=== PATIENT | female | born 1965 ===

== ENCOUNTER 2018-12-27 09:34 | Inpatient (IN) | payer OTHER ==
[2018-12-27] MEDS ORDERED: SODIUM CHLORIDE 1,000 ML IV STA ×2 (10:19→14:41)
[2018-12-27] MEDS ORDERED: ONDANSETRON 4 MG/2 ML VIAL IVPUSH ONE ×2 (10:19→14:41)
[2018-12-27] MEDS ORDERED: KETOROLAC TROMETHAMINE 30 MG/1 ML VIAL IVPUSH ONE (10:19)
--- NOTE | 2018-12-27 10:19 | PDOC ---
History of Present Illness - General History Source: Patient - History of Present Illness Timing/Duration: reports: getting worse Abdominal Pain Onset Location: reports: [facility] <Xuan Mustafa - Last Filed: 12/27/18 15:05> <Renetta Lemus - Last Filed: 12/27/18 22:45> - General Chief Complaint: Pain, Acute Stated Complaint: ABD.PAIN/VOMITING/DIZZY Time Seen by Provider: 12/27/18 09:51 Past History - Past Medical History COPD: No HTN: Yes - Immunization History Immunization Up to Date: No - Suicide/Smoking/Psychosocial Hx Smoking History: Never smoked Have you smoked in the past 12 months: No Information on smoking cessation initiated: No Hx Alcohol Use: No Drug/Substance Use Hx: No <Xuan Mustafa - Last Filed: 12/27/18 15:05> <Renetta Lemus - Last Filed: 12/27/18 22:45> - Past Medical History Allergies/Adverse Reactions: Allergies Allergy/AdvReac Type Severity Reaction Status Date / Time No Known Allergies Allergy Unverified 03/28/12 11:59 Home Medications: Ambulatory Orders Naproxen [Naprosyn -] 500 PO PRN 12/27/18 Review of Systems - Review of Systems Constitutional: No: Chills, Fever ABD/GI: Yes: Nausea, Vomiting, Abdominal cramping. No: Blood Streaked Bowels, Constipated, Diarrhea, Rectal Bleeding : Yes: Dysuria. No: Flank Pain, Hematuria <Xuan Mustafa - Last Filed: 12/27/18 15:05> *Physical Exam - Vital Signs Last Vital Signs Temp Pulse Resp BP Pulse Ox 98.4 F 81 16 148/91 100 12/27/18 09:45 12/27/18 09:45 12/27/18 09:45 12/27/18 09:45 12/27/18 09:45 - Physical Exam General Appearance: Yes: Mild Distress HEENT: positive: Normal Voice Neck: positive: Supple Respiratory/Chest: negative: Respiratory Distress Gastrointestinal/Abdominal: positive: Tender (diffuse ttp, most notably to mid and L lower abd) Musculoskeletal: negative: CVA Tenderness Integumentary: positive: Dry, Warm Neurologic: positive: Fully Oriented, Alert, Normal Mood/Affect <Xuan Mustafa - Last Filed: 12/27/18 15:05> - Vital Signs Last Vital Signs Temp Pulse Resp BP Pulse Ox 98.4 F 81 16 148/91 100 12/27/18 09:45 12/27/18 09:45 12/27/18 09:45 12/27/18 09:45 12/27/18 09:45 <Renetta Lemus Madihaellen - Last Filed: 12/27/18 22:45> ED Treatment Course - LABORATORY CBC & Chemistry Diagram: 12/27/18 10:39 12/27/18 10:39 <Xuan Mustafa - Last Filed: 12/27/18 15:05> - LABORATORY CBC & Chemistry Diagram: 12/27/18 10:39 12/27/18 10:39 <Renetta Lemus - Last Filed: 12/27/18 22:45> Medical Decision Making - Medical Decision Making 12/27/18 10:16 53 yo F, h/o remote csection/ovarian cyst removal and shameka, here with abdominal pain with nausea and vomiting. Patient states 2 weeks ago she developed intermittent LLQ pain and that last night started having repeated e/o n/v. Also reports some dysuria. No back pain, urinary frequency, hematuria, change in bowel movement or f/c. No h/o similar symptoms See exam R/o diverticulitis vs UTI/pyelo vs SBO -pain control -zofran -IVF -labs -CT 12/27/18 14:35 Distal SBO w/ transition point in L pelvis. Pt states pain and nausea has returned. Case d/w Dr Kelley of surgery, who recommends NG tube placement in ED. Will contact hospitalist to arrange admission at this time <Xuan Mustafa Last Filed: 12/27/18 15:05> - Medical Decision Making The patient was seen and evaluated in conjunction with midlevel provider under my direct supervision, ancillary studies were reviewed. I agree with the plan as outlined MONA Mustafa. HPI, workup/dispo as outlined. VS reviewed, wnl. labs and UA neg CT a/p concerning for SBO with dilated loops of SB >3cm on multiple views on my review pending official bedside educational sono with SBO and dilated loops of bowel, to and fro and lack of forward peristalsis surgery cs, Dr Kelley to see NGT NPO pain control admit 12/27/18 10:51 12/27/18 14:09 12/27/18 22:45 <Renetta Lemus - Last Filed: 12/27/18 22:45> *DC/Admit/Observation/Transfer - Discharge Dispostion Decision to Admit order: Yes <Xuan Mustafa - Last Filed: 12/27/18 15:05> <Renetta Lemus - Last Filed: 12/27/18 22:45> Diagnosis at time of Disposition: Small bowel obstruction - Discharge Dispostion Condition at time of disposition: Stable
[2018-12-27] MEDS ORDERED: KETOROLAC TROMETHAMINE 30 MG/1 ML VIAL ONE (10:28)
[2018-12-27] MEDS ORDERED: ONDANSETRON 4 MG/2 ML VIAL ONE ×2 (10:29→14:39)
[2018-12-27 10:56] LABS: BASO % 0.4 % (0-2.0); EOS % 0.2 % (0-4.5); HEMATOCRIT 42.4 % (32.4-45.2); HEMOGLOBIN 14.3 GM/dL (10.7-15.3); LYMPH % 9.3 % (8-40); MCH 28.9 pg (25.7-33.7); MCHC 33.8 g/dl (32.0-36.0); MEAN CELL VOLUME 85.6 fl (80-96); MEAN PLT VOLUME 8.5 fl (7.5-11.1); MONO % 3.1 % (3.8-10.2); PLATELET COUNT 351 K/MM3 (134-434); RBC 4.95 M/mm3 (3.60-5.2); RDW 14.8 % (11.6-15.6); WHITE BLOOD COUNT 9.6 K/mm3 (4.0-10.0)
[2018-12-27 10:58] LABS: EPI CELLS 8.4 /HPF (0-5/HPF); HYALINE CASTS 36 /lpf (0-8); URINE APPEARANCE CLEAR; URINE BILIRUBIN NEGATIVE (NEGATIVE); URINE COLOR YELLOW; URINE GLUCOSE (UA) NEGATIVE (NEGATIVE); URINE KETONE 2+ (NEGATIVE); URINE LEUK ESTERASE TRACE (NEGATIVE); URINE NITRITE NEGATIVE (NEGATIVE); URINE PROTEIN 2+ (NEGATIVE); URINE RBC 7 /hpf (0-4); URINE WBC 2 /hpf (0-5)
[2018-12-27 11:15] LABS: ALBUMIN 4.4 g/dl (3.4-5.0); BILIRUBIN,TOTAL 0.4 mg/dL (0.2-1); BLOOD UREA NITROGEN 19.1 mg/dL (7-18); CREATININE 0.7 mg/dL (0.55-1.3); POTASSIUM 3.7 mmol/L (3.5-5.1); TOT PROT 8.3 g/dl (6.4-8.2)
[2018-12-27] MEDS ORDERED: morphine CARPU-JECT 4 MG/1 ML DISP.SYRIN IVPUSH ONE ×2 (14:28→14:33)
[2018-12-27] MEDS ORDERED: morphine SULFATE 4 MG/ML VIAL ONE (14:33)
--- NOTE | 2018-12-27 15:17 | CONSULT ---
Consult Consult Specialty:: General Surgery Reason for Consultation:: SBO - History of Present Illness Chief Complaint: abdominal pain History of Present Illness: 53yo female PMH [place], s/p left ovarian cystectomy 1 week of worsening abdominal pain. Denies nausea and vomiting. No passage of flatus in 3 days. No BM in 2 days. She was not aware of cholecystetctomy although evidence on CT scan. We were called to assess. - History Source History Provided By: Patient, Medical Record Limitations to Obtaining History: No Limitations - Past Surgical History Past Surgical History: Yes: Cholecystectomy, Additional Surgical History: left ovarian cystectomy - Alcohol/Substance Use Hx Alcohol Use: No - Smoking History Smoking history: Never smoked Have you smoked in the past 12 months: No Home Medications - Allergies Allergies/Adverse Reactions: Allergies Allergy/AdvReac Type Severity Reaction Status Date / Time No Known Allergies Allergy Unverified 03/28/12 11:59 - Home Medications Home Medications: Ambulatory Orders Naproxen [Naprosyn -] 500 PO PRN 12/27/18 Review of Systems - Review of Systems Constitutional: denies: Chills, Fever Eyes: denies: Blind Spots, Recent Change in Vision HENT: denies: Difficult Swallowing, Throat Pain Neck: denies: Stiffness, Tenderness Cardiovascular: denies: Chest Pain, Palpitations Respiratory: denies: Cough, SOB Gastrointestinal: reports: Abdominal Pain, Bloating. denies: Constipation, Diarrhea Genitourinary: denies: Discharge, Dysuria Breasts: reports: No Symptoms Reported. denies: Pain, Skin Changes Musculoskeletal: denies: Muscle Pain, Muscle Weakness Integumentary: denies: Lesions, Rash Neurological: denies: Seizure, Syncope Endocrine: denies: Unexplained Weight Gain, Unexplained Weight Loss Hematology/Lymphatic: denies: Easily Bruised, Excessive Bleeding Psychiatric: denies: Anxiety, Depression Physical Exam Vital Signs: Vital Signs Temperature 98.4 F 12/27/18 09:45 Pulse Rate 81 12/27/18 09:45 Respiratory Rate 16 12/27/18 09:45 Blood Pressure 148/91 12/27/18 09:45 O2 Sat by Pulse Oximetry (%) 100 12/27/18 09:45 Constitutional: Yes: Well Nourished, No Distress, Calm Eyes: Yes: Conjunctiva Clear, EOM Intact HENT: Yes: Atraumatic, Normocephalic Neck: Yes: Supple, Trachea Midline Cardiovascular: Yes: Regular Rate and Rhythm, S1, S2 Respiratory: Yes: Regular, CTA Bilaterally Gastrointestinal: Yes: Normal Bowel Sounds, Soft, Abdomen, Obese, Tenderness ( diffuse discomfort). No: Tenderness, Epigastrium, Tenderness, Rebound ...Rectal Exam: Yes: Sphincter Tone Normal. No: Mass Renal/: No: CVA Tenderness - Left, CVA Tenderness - Right Breast(s): No: Right, Mass, Nipple Inversion, Skin Changes Musculoskeletal: No: Muscle Pain Extremities: No: Amputation, Cool, Cyanosis Edema: No Peripheral Pulses WNL: Yes Integumentary: No: Jaundice, Rash Neurological: Yes: Alert, Oriented Psychiatric: Yes: Alert, Oriented Labs: CBC, BMP 12/27/18 10:39 12/27/18 10:39 Imaging - Results Cat Scan: Report Reviewed, Image Reviewed (SBO possible closed loop) Problem List - Problems (1) Small bowel obstruction Assessment/Plan: 53yo female s/p Multiple abdominal surgeries with SBO with possible closed loop NPO and IVF hydration IV antibiotics Serial Exams F/u FUA xrays OR for Exp Laparotomy, ANDI, possible bowel ressection possible ostomy Discussed with patient risks, benefits and alternatives of laparoscopic possible open ectomy, including but not limited to bleeding, infection, injury to adjacent structures, leak or injury, intraabdominal abscess, incisional hernia, need for further procedures, ; alternatives include antibiotics, delayed or no surgery - risks of this include failure of nonoperative therapy, perforation, sepsis, recurrence, . Patient desires to proceed with operation - will take to OR for above. Informed consent signed for same. Thank you for the opportunity to participate in the care of this patient. Code(s): K56.609 - UNSP INTESTNL OBST, UNSP TO PARTIAL VERSUS COMPLETE OBST (2) History of abdominal surgery Code(s): Z98.890 - OTHER SPECIFIED POSTPROCEDURAL STATES (3) Abdominal pain in female patient Code(s): R10.9 - UNSPECIFIED ABDOMINAL PAIN
[2018-12-27] MEDS ORDERED: BENZOCAINE 20% 57 GM BOTTLE TP PRN (15:28)
[2018-12-27] MEDS ORDERED: LIDOCAINE HCL 2% JELLY (5 ML/TUBE) ONE (15:28)
[2018-12-27] MEDS ORDERED: LIDOCAINE VISCOUS 2% ORAL/TOP 20 ML UNIT-DOSE CUP MM ONE (15:29)
[2018-12-27] MEDS ORDERED: SODIUM CHLORIDE 1,000 ML IV SCH (16:15)
[2018-12-27] MEDS ORDERED: ONDANSETRON 4 MG/2 ML VIAL IVPB PRN (18:48)
[2018-12-27] MEDS: D5-1/2NS+20 MEQ KCL - 20 MEQ/1,000 ML INFUS.BAG IV SCH (19:07)
[2018-12-27 20:40] VITALS: BMI 25.2
[2018-12-27] MEDS: MORPHINE SULFATE 2 MG/ML VIAL IVPUSH PRN (21:18)
[2018-12-28] MEDS: D5-1/2NS+20 MEQ KCL - 20 MEQ/1,000 ML INFUS.BAG IV SCH ×3 (05:21→19:53)
[2018-12-28 07:34] LABS: BASO % 0.2 % (0-2.0); EOS % 0.1 % (0-4.5); HEMATOCRIT 40.5 % (32.4-45.2); HEMOGLOBIN 13.4 GM/dL (10.7-15.3); LYMPH % 13.1 % (8-40); MCH 28.8 pg (25.7-33.7); MCHC 33.2 g/dl (32.0-36.0); MEAN CELL VOLUME 86.9 fl (80-96); MEAN PLT VOLUME 8.6 fl (7.5-11.1); MONO % 9.8 % (3.8-10.2); NEUT % 76.8 % (42.8-82.8); PLATELET COUNT 313 K/MM3 (134-434); RBC 4.65 M/mm3 (3.60-5.2); RDW 14.9 % (11.6-15.6); WHITE BLOOD COUNT 7.1 K/mm3 (4.0-10.0)
[2018-12-28] MEDS: MORPHINE SULFATE 2 MG/ML VIAL IVPUSH PRN ×2 (07:52→20:22)
[2018-12-28 08:01] LABS: ALBUMIN 3.2 g/dl (3.4-5.0); BILIRUBIN,TOTAL 0.5 mg/dL (0.2-1); BLOOD UREA NITROGEN 13.6 mg/dL (7-18); CALCIUM 8.4 mg/dL (8.5-10.1); CREATININE 0.6 mg/dL (0.55-1.3); POTASSIUM 4.1 mmol/L (3.5-5.1); TOT PROT 6.5 g/dl (6.4-8.2)
--- NOTE | 2018-12-28 10:47 | HP ---
Admitting History and Physical - Primary Care Physician PCP: Kevan Nava - Admission Chief Complaint: SBO History of Present Illness: ER HISTORY-- Medical Decision Making - Medical Decision Making 12/27/18 10:16 53 yo F, h/o remote csection/ovarian cyst removal and shameka, here with abdominal pain with nausea and vomiting. Patient states 2 weeks ago she developed intermittent LLQ pain and that last night started having repeated e/o n/v. Also reports some dysuria. No back pain, urinary frequency, hematuria, change in bowel movement or f/c. No h/o similar symptoms See exam R/o diverticulitis vs UTI/pyelo vs SBO -pain control -zofran -IVF -labs -CT 12/27/18 14:35 Distal SBO w/ transition point in L pelvis. Pt states pain and nausea has returned. Case d/w Dr Kelley of surgery, who recommends NG tube placement in ED. Pt examined by me today spoke with surgeon- continue NG tube pt c/o pain and does not want NG tube placed no BM or flatus so far, feeling nauseous History Source: Patient Limitations to Obtaining History: No Limitations - Past Medical History ...: No - Smoking History Smoking history: Never smoked Have you smoked in the past 12 months: No - Alcohol/Substance Use Hx Alcohol Use: No Home Medications - Allergies Allergies/Adverse Reactions: Allergies Allergy/AdvReac Type Severity Reaction Status Date / Time No Known Allergies Allergy Unverified 03/28/12 11:59 - Home Medications Home Medications: Ambulatory Orders Naproxen [Naprosyn -] 500 PO PRN 12/27/18 Review of Systems - Review of Systems Constitutional: denies: Chills, Fever Gastrointestinal: reports: Abdominal Pain, Nausea. denies: Constipation, Diarrhea Physical Examination Vital Signs: Vital Signs Temperature 99.4 F 12/28/18 10:00 Pulse Rate 77 12/28/18 10:00 Respiratory Rate 18 12/28/18 10:00 Blood Pressure 132/87 12/28/18 10:00 O2 Sat by Pulse Oximetry (%) 95 12/27/18 21:00 Constitutional: Yes: Moderate Distress Cardiovascular: Yes: Regular Rate and Rhythm Respiratory: Yes: CTA Bilaterally Gastrointestinal: Yes: Soft, Distention, Hypoactive Bowel Sounds, Tenderness. No: Normal Bowel Sounds Edema: No Neurological: Yes: Alert, Oriented Labs: CBC, BMP 12/28/18 06:35 12/28/18 06:35 Imaging - Results Cat Scan: Report Reviewed Problem List - Problems (1) Abdominal pain in female patient Code(s): R10.9 - UNSPECIFIED ABDOMINAL PAIN (2) History of abdominal surgery Code(s): Z98.890 - OTHER SPECIFIED POSTPROCEDURAL STATES (3) Small bowel obstruction Code(s): K56.609 - UNSP INTESTNL OBST, UNSP TO PARTIAL VERSUS COMPLETE OBST Assessment/Plan PLAN NG tube on continuous low wall suction iv fluids NPO pain control Surgery eval noted Check FUA Zofran as needed DVT prophylaxis-- Lovenox sc
[2018-12-28] MEDS: ACETAMINOPHEN 1000 MG/100 ML VIAL (NON FORMULARY) IVPB PRN ×2 (12:34→23:07)
[2018-12-28] MEDS: PANTOPRAZOLE SODIUM 40 MG VIAL IVPUSH SCH (12:34)
[2018-12-29] MEDS: D5-1/2NS+20 MEQ KCL - 20 MEQ/1,000 ML INFUS.BAG IV SCH ×3 (02:00→19:00)
[2018-12-29] MEDS: ACETAMINOPHEN 1000 MG/100 ML VIAL (NON FORMULARY) IVPB PRN ×2 (04:55→13:12)
[2018-12-29] MEDS: MORPHINE SULFATE 2 MG/ML VIAL IVPUSH PRN (09:40)
--- NOTE | 2018-12-29 09:56 | PN ---
Progress Note (short form) - Note Progress Note: Wants to remove NG tube- has pain in throat c/o abd pain Nausea+ Vital Signs - 24 hr 12/28/18 12/28/18 12/28/18 10:00 14:00 18:16 Temperature 99.4 F 99.0 F 98.4 F Pulse Rate 77 81 77 Respiratory 18 18 18 Rate Blood Pressure 132/87 118/75 125/77 O2 Sat by Pulse Oximetry (%) 12/28/18 12/29/18 12/29/18 21:00 07:35 09:20 Temperature 99.2 F 98.2 F Pulse Rate 77 80 Respiratory 18 18 18 Rate Blood Pressure 142/85 136/87 O2 Sat by Pulse 95 Oximetry (%) Current Medications Generic Name Dose Route Start Last Admin Trade Name Freq PRN Reason Stop Dose Admin Acetaminophen 1,000 mg 12/27/18 18:47 12/29/18 04:55 Ofirmev Injection - IVPB 1,000 mg Q6H PRN Administration PAIN OR FEVER Benzocaine 1 spray 12/27/18 15:28 Americaine 20% [place] - TP PRN PRN NG tube placement Benzocaine/Menthol 1 each 12/28/18 10:47 Cepacol Lozenge - MM PRN PRN SORE THROAT Potassium Chloride/Dextrose/Sod Cl 20 meq in 1,000 mls @ 100 mls/hr 12/27/18 19:00 12/29/18 02:00 D5-1/2ns+20 Meq Kcl - IV 100 mls/hr ASDIR LEVI Administration Morphine Sulfate 2 mg 12/27/18 18:49 12/29/18 09:40 Morphine Sulfate IVPUSH 2 mg Q6H PRN Administration PAIN LEVEL 6-10 Ondansetron HCl 4 mg 12/27/18 18:48 Zofran Injection IVPB Q6H PRN NAUSEA Pantoprazole Sodium 40 mg 12/28/18 10:00 12/28/18 12:34 Protonix Iv IVPUSH 40 mg DAILY LEVI Administration Laboratory Results - last 24 hr 12/28/18 10:10 Lactic Acid 1.1 S1 S2 RRR Lungs decreased Increased NH drainage Abd- soft, distended, tender+_, no bs no edema PLAN Cepachol lozenges to help with throat pain irritation due to NG tube pt explained in detail her condition- explained why she needs NG continue with pain control yesterday's FUA-- SBO will check FUA today surgical follow up Problem List - Problems (1) Abdominal pain in female patient Code(s): R10.9 - UNSPECIFIED ABDOMINAL PAIN (2) History of abdominal surgery Code(s): Z98.890 - OTHER SPECIFIED POSTPROCEDURAL STATES (3) Small bowel obstruction Code(s): K56.609 - UNSP INTESTNL OBST, UNSP TO PARTIAL VERSUS COMPLETE OBST
[2018-12-29] MEDS: ENOXAPARIN NA (PORCINE) 40 MG/0.4 ML DISP.SYRIN SQ SCH (10:18)
[2018-12-29] MEDS: PANTOPRAZOLE SODIUM 40 MG VIAL IVPUSH SCH (11:26)
[2018-12-29 14:15] LABS: INR 1.09 (0.83-1.09); PROTHROMBIN TIME (PATIENT) 12.9 SEC (9.7-13.0)
[2018-12-29 14:20] LABS: HEMATOCRIT 41.2 % (32.4-45.2); HEMOGLOBIN 13.5 GM/dL (10.7-15.3); MCH 28.7 pg (25.7-33.7); MCHC 32.8 g/dl (32.0-36.0); MEAN CELL VOLUME 87.5 fl (80-96); MEAN PLT VOLUME 8.3 fl (7.5-11.1); RBC 4.71 M/mm3 (3.60-5.2); RDW 14.6 % (11.6-15.6)
[2018-12-29 14:31] LABS: ALBUMIN 3.3 g/dl (3.4-5.0); BILIRUBIN,TOTAL 0.6 mg/dL (0.2-1); BLOOD UREA NITROGEN 16.2 mg/dL (7-18); CALCIUM 8.8 mg/dL (8.5-10.1); CREATININE 0.6 mg/dL (0.55-1.3); TOT PROT 6.7 g/dl (6.4-8.2)
[2018-12-29 14:44] LABS: PLATELET COUNT 307 K/MM3 (134-434)
[2018-12-29] MEDS: BENZOCAINE/MENTH/CETYLPYRD CL 1 EACH LOZENGE MM PRN (15:37)
[2018-12-29] MEDS ORDERED: ACETAMINOPHEN 1000 MG/100 ML VIAL (NON FORMULARY) IVPB ONE (19:40)
[2018-12-30] MEDS: BENZOCAINE/MENTH/CETYLPYRD CL 1 EACH LOZENGE MM PRN (05:02)
[2018-12-30] MEDS: D5-1/2NS+20 MEQ KCL - 20 MEQ/1,000 ML INFUS.BAG IV SCH (05:02)
[2018-12-30] MEDS: MORPHINE SULFATE 2 MG/ML VIAL IVPUSH PRN ×3 (05:41→22:51)
[2018-12-30 07:47] LABS: ALBUMIN 3.2 g/dl (3.4-5.0); BILIRUBIN,TOTAL 0.5 mg/dL (0.2-1); CALCIUM 8.8 mg/dL (8.5-10.1); CREATININE 0.6 mg/dL (0.55-1.3); POTASSIUM 4.2 mmol/L (3.5-5.1); TOT PROT 6.7 g/dl (6.4-8.2)
[2018-12-30] MEDS: PANTOPRAZOLE SODIUM 40 MG VIAL IVPUSH SCH (09:02)
--- NOTE | 2018-12-30 09:17 | CON.CARD ---
Consult Consult Specialty:: Cardiology Referred by:: Dr. Chance Reason for Consultation:: Preop Cardiac Evaluation - History of Present Illness Chief Complaint: Nausea, Vomiting History of Present Illness: 53F with nausea, vomiting and abd pain which began Wednesday evening. Came to ER for evaluation, CT scan revealed a small bowel obstruction for which surgery was consulted. The patient requires surgery. Cardiac ROS: She denies exertional CP, SOB, palpitations, syncope. No prior cardiac hx. She exercises and describes herself as "very active" Exercise capacity is unlimited. The history was obtained in [place]. - History Source History Provided By: Patient Limitations to Obtaining History: No Limitations - Past Medical History PORTFOLIO MGR: No: Alzheimer's, CVA, Dementia, Migraine, Multiple Sclerosis, Peripheral Neuropathy, Parkinson's, Seizure, Syncope, TIA, Vertigo, Other Cardio/Vascular: No: AFIB, Aneurysm, Aortic Insufficiency, Aortic Stenosis, CAD , CHF, Deep Vein Thrombosis, HTN, Hyperlipdemia, MO, Mitral Insufficiency, Mitral Stenosis, Murmur, Pulmonary Hypertension, Other Pulmonary: No: Asthma, Bronchitis, Cancer, COPD, O2 Dependent, Pneumonia, Previously Intubated, Pulmonary Embolus, Pulmonary Fibrosis, Sleep Apnea, Other Gastrointestinal: No: Ascites, Cancer, Constipation, Crohn's Disease, Diverticulitis, Diverticulosis, Esophageal Varices, Gastritis, GERD, GI Bleed, Hemorrhoids, Hiatal Hernia, Inflamatory Bowel Disease, Irritable Bowel Disease, Pancreatitis, Peptic Ulcer Disease, Ulcerative Colitis, Other Hepatobiliary: No: Cirrhosis, Cholelithiasis, Cholecystitis, Choledocholithiasis , Hepatitis A, Hepatitis B, Hepatitis C, Other Renal/: No: Renal Failure, Renal Inusuff, BPH, Cancer, Hematuria, Hemodialysis , Neurogenic Bladder, Renal Calculi, UTI, Other Reproductive: No: Ectopic , Endometriosis, Fibroids, PID, Polycystic Ovary Syndrome, Postmenopausal, Other ...: No Heme/Onc: No: Anemia, B12 Deficiency, Bleeding Disorder, Cancer, Current Chemotherapy, Current Radiation Therapy, Hemochromatosis, Hypercoaguable State, Myeloproliferative Synd, Sickle Cell Disease, Sickle Cell Trait, Thrombocytopenia, Other Infectious Disease: No: AIDS, C-Diff, Herpes Zoster, HIV, MRSA, STD's, Tuberculosis, VREF, Other Psych: No: Addictions, Anxiety, Bipolar, Depression, Panic, Psychosis, Schizophrenia, Other Musculoskeletal: No: Bursitis, Chronic low back pain, Hemiparesis, Hemiplegia, Osteoarthritis, Paraplegia, Other Rheumatology: No: Fibromyalgia, Gout, Lupus, Rheumatoid Arthritis, Sarcoidosis, Vasculitis, Other ENT: No: Allergic Rhinitis, Sinusitis, Other Endocrine: No: [place]'s Disease, [place]'s Disease, Diabetes Insipidus, Diabetes Mellitus, Hyperparathyroidism, Hyperthyroidism, Hypothyroidism, Osteopenia, SIADH, Other Dermatology: No: Basal Cell, Cellulitis, Eczema, Melanoma, Psoriasis, Squamous Cell, Other - Past Surgical History Past Surgical History: Yes: Cholecystectomy, Additional Surgical History: left ovarian cystectomy - Alcohol/Substance Use Hx Alcohol Use: No - Smoking History Smoking history: Never smoked Have you smoked in the past 12 months: No - Social History ADL: Independent History of Recent Travel: No Home Medications - Allergies Allergies/Adverse Reactions: Allergies Allergy/AdvReac Type Severity Reaction Status Date / Time No Known Allergies Allergy Unverified 03/28/12 11:59 - Home Medications Home Medications: Ambulatory Orders Naproxen [Naprosyn -] 500 PO PRN 12/27/18 Family Disease History - Family Disease History Family History: Unremarkable (No early CAD or h/o SCD) Review of Systems Findings/Remarks: see HPI - Review of Systems Constitutional: reports: No Symptoms Eyes: reports: No Symptoms HENT: reports: No Symptoms Neck: reports: No Symptoms Cardiovascular: reports: No Symptoms Respiratory: reports: No Symptoms Gastrointestinal: reports: Abdominal Pain, Nausea, Vomiting Genitourinary: reports: No Symptoms Breasts: reports: No Symptoms Reported Musculoskeletal: reports: No Symptoms Integumentary: reports: No Symptoms Neurological: reports: No Symptoms Endocrine: reports: No Symptoms Hematology/Lymphatic: reports: No Symptoms Psychiatric: reports: No Symptoms - Risk Factors Known Risk Factors: Yes: Other (Borderline HTN- treated w/ diet and exercise ( lifestyle measures over last few months)) Vital Signs: Vital Signs Temperature 98.8 F 12/30/18 06:00 Pulse Rate 90 12/30/18 06:00 Respiratory Rate 18 12/30/18 06:00 Blood Pressure 134/98 12/30/18 06:00 O2 Sat by Pulse Oximetry (%) 97 12/29/18 21:00 Constitutional: Yes: No Distress Eyes: Yes: Conjunctiva Clear HENT: Yes: Other (+ NGT) Respiratory: Yes: CTA Bilaterally Gastrointestinal: Yes: Other (decreased bowel sounds, mild distension. No rebound or guarding tenderness) Cardiovascular: Yes: Regular Rate and Rhythm JVD: No Carotid Bruit: No Heart Sounds: Yes: S1, S2 (RRR, no M/R/G) Edema: No Peripheral Pulses WNL: Yes Neurological: Yes: Alert, Oriented ...Motor Strength: WNL - Other Data Labs, Other Data: CBC, BMP 12/29/18 13:47 12/30/18 06:06 INR, PTT INR 1.09 (0.83-1.09) 12/29/18 13:47 Imaging - Results Cat Scan: Report Reviewed EKG: Image Reviewed (NSR 86bpm, nonspecific T wave changes in V2, V3 which are similar to prior ECG 10/09/09.) Assessment/Plan IMP: 1. Small bowel obstruction 2. Borderline chronic HTN 3. Chronic nonspecific T wave changes on ECG There are no absolute cardiac contraindications to proceed with urgent/emergent surgery for SBO. She has no h/o CAD and no exertional anginal symptoms, her exercise capacity is unlimited. She is in NSR and is euvolemic. No murmur of . The Blood pressure is borderline elevated, but acceptable to proceed with urgent /emergent surgery with close intraoperative monitoring. Would not recommend starting oral beta may or other oral therapy acutely this close to surgery as there is not sufficient time to observe response and titrate and there may be risk of inducing hypotension. The nonspecific T wave changes are not new- seen on prior ECGs and she is asymptomatic from CV standpoint. Would not delay urgent surgery for any other diagnostic tests that would not alter her management. Will follow, please call if any issues post op. Thank you.
[2018-12-30] MEDS: ENOXAPARIN NA (PORCINE) 40 MG/0.4 ML DISP.SYRIN SQ SCH (10:43)
[2018-12-30] MEDS ORDERED: ONDANSETRON 4 MG/2 ML VIAL IVPUSH PRN (10:54)
[2018-12-30] MEDS ORDERED: LACTATED RINGERS SOLUTION 1,000 ML IV SCH (11:00)
[2018-12-30] MEDS ORDERED: ROCURONIUM BROMIDE 50 MG/5 ML SYRINGE ONE (11:08)
[2018-12-30] MEDS ORDERED: PROPOFOL 20 ML ONE ×2 (11:08)
[2018-12-30] MEDS ORDERED: fentaNYL CITRATE 250 MCG/5 ML VIAL ONE (11:08)
[2018-12-30] MEDS ORDERED: CEFOXITIN SODIUM 1 GM IVPB ONE ×2 (11:15→11:49)
[2018-12-30] MEDS ORDERED: cefOXitin SODIUM 1 GM VIAL (RESTRICTED TO ID) IVPB ONE (11:22)
[2018-12-30] MEDS ORDERED: LIDOCAINE HCL/PF 2% SDV 5ML VIAL ONE ×2 (11:24→12:51)
--- NOTE | 2018-12-30 11:24 | PN ---
Problem List - Problems (1) Abdominal pain in female patient Code(s): R10.9 - UNSPECIFIED ABDOMINAL PAIN (2) History of abdominal surgery Code(s): Z98.890 - OTHER SPECIFIED POSTPROCEDURAL STATES (3) Small bowel obstruction Code(s): K56.609 - UNSP INTESTNL OBST, UNSP TO PARTIAL VERSUS COMPLETE OBST
[2018-12-30] MEDS ORDERED: DEXAMETHASONE SOD PHOSPHATE 4 MG/1 ML VIAL ONE (12:06)
[2018-12-30] MEDS ORDERED: HYDROmorphone HCl 2 MG/ML VIAL ONE (12:15)
[2018-12-30] MEDS ORDERED: GLYCOPYRROLATE 0.2 MG/1 ML VIAL ONE (12:46)
[2018-12-30] MEDS ORDERED: NEOSTIGMINE METHYLSULFATE 0.5 MG/ML - 10 ML MDV ONE (12:46)
--- NOTE | 2018-12-30 13:26 | OP ---
Operative Note - Note: Operative Date: 12/30/18 Pre-Operative Diagnosis: small bowel obstruction, closed loop Operation: exploratory laparotomy, lysis of adhesion, sgemental ressection of small intestines and omentum Findings: closed loop mid ileum, compromised small intestines ressected and primary stapled anastomisis was created Post-Operative Diagnosis: Same as Pre-op Surgeon: John Kelley Human Resources Mgr: Lit Schulz Anesthesiologist/ROD AND TUBE STRAIGHTENER: Neli Moore Anesthesia: General Specimens Removed: portion of ileum, portion of omentum Estimated Blood Loss (mls): 100 Drains & Tubes with Location: NGT and hernández Drains, Volume Out (mls): 950 (800 sucus 150 hernández) Fluid Volume Replaced (mls): 1,700 Operative Report Dictated: Yes
[2018-12-30] MEDS ORDERED: ACETAMINOPHEN INJECTION 100 ML IVPB ONE (13:27)
[2018-12-30] MEDS ORDERED: ACETAMINOPHEN 1000 MG/100 ML VIAL (NON FORMULARY) IVPB ONE ×2 (13:28→20:04)
[2018-12-30] MEDS ORDERED: ONDANSETRON 4 MG/2 ML VIAL IVPB PRN (14:04)
[2018-12-30] MEDS ORDERED: D5-1/2NS+20 MEQ KCL - 20 MEQ/1,000 ML INFUS.BAG IV SCH (14:04)
[2018-12-30] MEDS ORDERED: BENZOCAINE 20% 57 GM BOTTLE TP PRN (14:04)
[2018-12-30] MEDS ORDERED: BENZOCAINE/MENTH/CETYLPYRD CL 1 EACH LOZENGE MM PRN (14:04)
[2018-12-31] MEDS: ACETAMINOPHEN 1000 MG/100 ML VIAL (NON FORMULARY) IVPB PRN ×2 (02:48→09:14)
[2018-12-31] MEDS: MORPHINE SULFATE 2 MG/ML VIAL IVPUSH PRN (06:37)
[2018-12-31] MEDS: ENOXAPARIN NA (PORCINE) 40 MG/0.4 ML DISP.SYRIN SQ SCH (09:15)
[2018-12-31] MEDS: PANTOPRAZOLE SODIUM 40 MG VIAL IVPUSH SCH (09:15)
--- NOTE | 2018-12-31 09:43 | PN ---
Progress Note (short form) - Note Progress Note: s/p surgery POD #1 Vital Signs - 24 hr 12/30/18 12/30/18 12/30/18 10:47 13:15 13:30 Temperature 98.6 F 98.1 F Pulse Rate 90 98 H 96 H Respiratory 18 16 16 Rate Blood Pressure 128/84 128/68 126/85 O2 Sat by Pulse 99 100 Oximetry (%) 12/30/18 12/30/18 12/30/18 13:45 14:00 14:15 Temperature Pulse Rate 99 H 100 H 98 H Respiratory 14 14 16 Rate Blood Pressure 134/80 131/81 134/88 O2 Sat by Pulse 100 100 100 Oximetry (%) 12/30/18 12/30/18 12/30/18 14:30 14:45 15:00 Temperature Pulse Rate 100 H 101 H 102 H Respiratory 14 14 16 Rate Blood Pressure 128/82 116/79 109/79 O2 Sat by Pulse 98 97 97 Oximetry (%) 12/30/18 12/30/18 12/30/18 15:15 15:30 16:00 Temperature 99.0 F 98.8 F Pulse Rate 99 H 103 H 100 H Respiratory 14 16 16 Rate Blood Pressure 114/75 114/71 116/79 O2 Sat by Pulse 98 98 98 Oximetry (%) 12/30/18 12/30/18 12/30/18 21:00 21:12 23:19 Temperature 98.7 F 98.1 F Pulse Rate 95 H 95 H Respiratory 20 20 Rate Blood Pressure 110/77 117/78 O2 Sat by Pulse 99 Oximetry (%) 12/31/18 07:03 Temperature 99.7 F H Pulse Rate 88 Respiratory 20 Rate Blood Pressure 133/77 O2 Sat by Pulse Oximetry (%) Current Medications Generic Name Dose Route Start Last Admin Trade Name Freq PRN Reason Stop Dose Admin Acetaminophen 1,000 mg 12/31/18 02:38 12/31/18 09:14 Ofirmev Injection - IVPB 1,000 mg Q6H PRN Administration MODERATE PAIN Benzocaine 1 spray 12/30/18 14:04 Americaine 20% [place] - TP PRN PRN NG tube placement Benzocaine/Menthol 1 each 12/30/18 14:04 Cepacol Lozenge - MM PRN PRN SORE THROAT Enoxaparin Sodium 40 mg 12/31/18 10:00 12/31/18 09:15 Lovenox - SQ 40 mg DAILY LEVI Administration Potassium Chloride/Dextrose/Sod Cl 20 meq in 1,000 mls @ 100 mls/hr 12/30/18 14:04 12/30/18 17:20 D5-1/2ns+20 Meq Kcl - IV 100 mls/hr ASDIR LEVI Administration Morphine Sulfate 2 mg 12/30/18 14:04 12/31/18 06:37 Morphine Sulfate IVPUSH 2 mg Q6H PRN Administration PAIN LEVEL 6-10 Ondansetron HCl 4 mg 12/30/18 14:04 Zofran Injection IVPB Q6H PRN NAUSEA Pantoprazole Sodium 40 mg 12/31/18 10:00 12/31/18 09:15 Protonix Iv IVPUSH 40 mg DAILY LEVI Administration S1 S2 RRR Lungs decreased NG tube Abd- soft, distended, tender+_, no bs no edema PLAN s/p surgery pain control iv fluids DVT prophylaxis continue with meds Problem List - Problems (1) Abdominal pain in female patient Code(s): R10.9 - UNSPECIFIED ABDOMINAL PAIN (2) History of abdominal surgery Code(s): Z98.890 - OTHER SPECIFIED POSTPROCEDURAL STATES (3) Small bowel obstruction Code(s): K56.609 - UNSP INTESTNL OBST, UNSP TO PARTIAL VERSUS COMPLETE OBST
--- NOTE | 2018-12-31 11:24 | PN ---
Progress Note, Physician Chief Complaint: POD1 s/p ex lap for ANDI and segmental small bowel resection - Current Medication List Current Medications: Active Medications Acetaminophen (Ofirmev Injection -) 1,000 mg IVPB Q6H PRN PRN Reason: MODERATE PAIN Last Admin: 12/31/18 09:14 Dose: 1,000 mg Benzocaine (Americaine 20% [place] -) 1 spray TP PRN PRN PRN Reason: NG tube placement Benzocaine/Menthol (Cepacol Lozenge -) 1 each MM PRN PRN PRN Reason: SORE THROAT Enoxaparin Sodium (Lovenox -) 40 mg SQ DAILY [facility] Last Admin: 12/31/18 09:15 Dose: 40 mg Potassium Chloride/Dextrose/Sod Cl (D5-1/2ns+20 Meq Kcl -) 20 meq in 1,000 mls @ 100 mls/hr IV ASDIR [facility] Last Admin: 12/30/18 17:20 Dose: 100 mls/hr Morphine Sulfate (Morphine Sulfate) 2 mg IVPUSH Q6H PRN PRN Reason: PAIN LEVEL 6-10 Last Admin: 12/31/18 06:37 Dose: 2 mg Ondansetron HCl (Zofran Injection) 4 mg IVPB Q6H PRN PRN Reason: NAUSEA Pantoprazole Sodium (Protonix Iv) 40 mg IVPUSH DAILY [facility] Last Admin: 12/31/18 09:15 Dose: 40 mg - Objective Vital Signs: Vital Signs Temperature 99.7 F H 12/31/18 07:03 Pulse Rate 88 12/31/18 07:03 Respiratory Rate 20 12/31/18 07:03 Blood Pressure 133/77 12/31/18 07:03 O2 Sat by Pulse Oximetry (%) 99 12/30/18 21:00 Labs: CBC, BMP 12/29/18 13:47 12/30/18 06:06 INR, PTT INR 1.09 (0.83-1.09) 12/29/18 13:47 Assessment/Plan Pt is resting comfortably in NAD. She says pain is well-controlled with current pain meds. VSS, no anesthetic issues/complications noted.
[2018-12-31 12:07] LABS: BLOOD UREA NITROGEN 13.2 mg/dL (7-18); CALCIUM 8.2 mg/dL (8.5-10.1); CREATININE 0.6 mg/dL (0.55-1.3); POTASSIUM 4.2 mmol/L (3.5-5.1)
--- NOTE | 2018-12-31 12:45 | PN ---
Progress Note (short form) - Note Progress Note: s: s/p ex lap, ANDI, SBR. no chest pain, palps, dizziness Current Medications Acetaminophen (Ofirmev Injection -) 1,000 mg IVPB Q6H PRN PRN Reason: MODERATE PAIN Last Admin: 12/31/18 09:14 Dose: 1,000 mg Benzocaine (Americaine 20% [place] -) 1 spray TP PRN PRN PRN Reason: NG tube placement Benzocaine/Menthol (Cepacol Lozenge -) 1 each MM PRN PRN PRN Reason: SORE THROAT Enoxaparin Sodium (Lovenox -) 40 mg SQ DAILY [facility] Last Admin: 12/31/18 09:15 Dose: 40 mg Potassium Chloride/Dextrose/Sod Cl (D5-1/2ns+20 Meq Kcl -) 20 meq in 1,000 mls @ 100 mls/hr IV ASDIR [facility] Last Admin: 12/30/18 17:20 Dose: 100 mls/hr Morphine Sulfate (Morphine Sulfate) 2 mg IVPUSH Q6H PRN PRN Reason: PAIN LEVEL 6-10 Last Admin: 12/31/18 06:37 Dose: 2 mg Ondansetron HCl (Zofran Injection) 4 mg IVPB Q6H PRN PRN Reason: NAUSEA Pantoprazole Sodium (Protonix Iv) 40 mg IVPUSH DAILY [facility] Last Admin: 12/31/18 09:15 Dose: 40 mg Vital Signs Period Temp Pulse Resp BP Sys/Wilks Pulse Ox Last 24 Hr 98.1 F-99.7 F 88-103 14-20 109-134/68-88 97-100 Constitutional: Yes: No Distress Eyes: Yes: Conjunctiva Clear HENT: Yes: Other (+ NGT) Respiratory: Yes: CTA Bilaterally Gastrointestinal: Yes: Other (decreased bowel sounds, mild distension. No rebound or guarding tenderness) Cardiovascular: Yes: Regular Rate and Rhythm JVD: No Carotid Bruit: No Heart Sounds: Yes: S1, S2 (RRR, no M/R/G) Edema: No Peripheral Pulses WNL: Yes Neurological: Yes: Alert, Oriented Imaging - Results Cat Scan: Report Reviewed EKG: Image Reviewed (NSR 86bpm, nonspecific T wave changes in V2, V3 which are similar to prior ECG 10/09/09.) Assessment/Plan IMP: 1. Small bowel obstruction, s/p ex lap, ANDI, SBR 2. Borderline chronic HTN 3. Chronic nonspecific T wave changes on ECG - plans per surgery - BP improved, monitor
--- NOTE | 2018-12-31 14:49 | EKG ---
Test Reason : Blood Pressure : / mmHG Vent. Rate : 086 BPM Atrial Rate : 086 BPM P-R Int : 142 ms QRS Dur : 082 ms QT Int : 374 ms P-R-T Axes : 036 028 058 degrees QTc Int : 447 ms NORMAL SINUS RHYTHM LEFT ATRIAL ENLARGEMENT LEFT VENTRICULAR HYPERTROPHY NONSPECIFIC T WAVE ABNORMALITY ABNORMAL ECG Confirmed by MD ALBINA, KYE ([id number]) on 12/31/2018 2:48:48 PM Referred By: Confirmed By:KYE MONTEMAYOR MD
--- NOTE | 2018-12-31 16:00 | PN ---
Progress Note, Physician Chief Complaint: andominal pain History of Present Illness: 53yo female PMH s/[place], s/p left ovarian cystectomy 1 week of worsening abdominal pain. Denies nausea and vomiting. She has been stable since surgery. - Current Medication List Current Medications: Active Medications Acetaminophen (Ofirmev Injection -) 1,000 mg IVPB Q6H PRN PRN Reason: MODERATE PAIN Last Admin: 12/31/18 09:14 Dose: 1,000 mg Benzocaine (Americaine 20% [place] -) 1 spray TP PRN PRN PRN Reason: NG tube placement Benzocaine/Menthol (Cepacol Lozenge -) 1 each MM PRN PRN PRN Reason: SORE THROAT Enoxaparin Sodium (Lovenox -) 40 mg SQ DAILY [facility] Last Admin: 12/31/18 09:15 Dose: 40 mg Potassium Chloride/Dextrose/Sod Cl (D5-1/2ns+20 Meq Kcl -) 20 meq in 1,000 mls @ 100 mls/hr IV ASDIR [facility] Last Admin: 12/30/18 17:20 Dose: 100 mls/hr Morphine Sulfate (Morphine Sulfate) 2 mg IVPUSH Q6H PRN PRN Reason: PAIN LEVEL 6-10 Last Admin: 12/31/18 06:37 Dose: 2 mg Ondansetron HCl (Zofran Injection) 4 mg IVPB Q6H PRN PRN Reason: NAUSEA Pantoprazole Sodium (Protonix Iv) 40 mg IVPUSH DAILY [facility] Last Admin: 12/31/18 09:15 Dose: 40 mg - Objective Vital Signs: Vital Signs Temperature 100.5 F H 12/31/18 14:46 Pulse Rate 103 H 12/31/18 14:46 Respiratory Rate 18 12/31/18 14:46 Blood Pressure 117/72 12/31/18 14:46 O2 Sat by Pulse Oximetry (%) 99 12/30/18 21:00 Vital Signs Period Temp Pulse Resp BP Sys/Wilks Pulse Ox Last 24 Hr 98.1 F-100.5 F 88-103 18-20 110-133/72-78 99 Intake & Output 12/31/18 12/31/18 12/31/18 07:59 15:59 23:59 Intake Total 650 Output Total 600 300 Balance 50 -300 Intake: IV 600 D5-1/2NS+20 MEQ KCL - 20 600 meq In 1,000 ml @ 100 mls /hr IV ASDIR [facility] Rx#: [id number] IVPB 50 Output: Urine 600 300 Guillory 600 300 Other: Voiding Method Indwelling Catheter Bowel Movement No No Constitutional: Yes: Well Nourished, No Distress, Calm Eyes: Yes: Conjunctiva Clear, EOM Intact HENT: Yes: Atraumatic, Normocephalic Neck: Yes: Supple, Trachea Midline Cardiovascular: Yes: Regular Rate and Rhythm, S1, S2 Respiratory: Yes: Regular, CTA Bilaterally Gastrointestinal: Yes: Normal Bowel Sounds, Soft, Tenderness (incisional). No: Tenderness, Epigastrium Genitourinary: No: CVA Tenderness - Left, CVA Tenderness - Right Musculoskeletal: No: Muscle Pain, Muscle Weakness Extremities: No: Cool, Cyanosis Edema: No Peripheral Pulses WNL: Yes Integumentary: No: Jaundice, Rash Wound/Incision: Yes: Clean/Dry, Well Approximated, Dressing Dry and Intact Neurological: Yes: Alert, Oriented Psychiatric: Yes: Alert, Oriented Labs: CBC, BMP 12/29/18 13:47 12/31/18 10:53 INR, PTT INR 1.09 (0.83-1.09) 12/29/18 13:47 Problem List - Problems (1) Small bowel obstruction Assessment/Plan: 53yo female s/p Multiple abdominal surgeries with SBO with possible closed loop POD#1 s/p Exp Laparotomy and segmental ressection of small bowel for a stangulated closed loop. NPO and IVF hydration NGT to LCWS IV antibiotics adequate analgesia OOB to chair will follow Code(s): K56.609 - UNSP INTESTNL OBST, UNSP TO PARTIAL VERSUS COMPLETE OBST (2) History of abdominal surgery Code(s): Z98.890 - OTHER SPECIFIED POSTPROCEDURAL STATES (3) Abdominal pain in female patient Code(s): R10.9 - UNSPECIFIED ABDOMINAL PAIN
--- NOTE | 2018-12-31 20:43 | HOSP ---
Subjective - Review of Symptoms Events since last encounter: Hopsitalist service was asked to examine this patient for fever of 102 and tachycardia to 121 earlier today. Patient seen and examined. States has abdominal pain at incision site. General: A&Ox3. Mild distress secondary to pain CV: S1, S2, rrr Lungs: CTA Abd: surgical dressing removed, surgical danna intact, wound edges well- approximated; scant blood from one staple; no erythema, no swelling, no fluctuance Lower ext: 2+ pulses, warm, well-perfused, SCDs Assessment 53 year-old female w/p exploratory laparotomy, lysis of adhesion, segemental ressection of small intestines and omentum with primary stapled anastamosis on . Also s/p ovarian cystectomy x 1 week. Asked to assess the patient for fever and tachycardia. This may be post-operative inflammatory response but cannot exclude infectious etiology. Plan: Blood and urine cultures start Zosyn NS x 1L bolus NS@100mL/hr stat cbc WBC 12.8k hernández dc'd Physical Examination Vital Signs: Vital Signs Temperature 99.7 F H 12/31/18 19:45 Pulse Rate 121 H 12/31/18 16:35 Respiratory Rate 20 12/31/18 16:35 Blood Pressure 124/72 12/31/18 16:35 O2 Sat by Pulse Oximetry (%) 99 12/30/18 21:00 Labs: CBC, BMP 12/29/18 13:47 12/31/18 10:53
[2018-12-31] MEDS ORDERED: SODIUM CHLORIDE 1,000 ML IV STA (20:59)
[2018-12-31] MEDS: CEFTRIAXONE 1 GM in DEXTROSE 5%-WATER - 50 ML IVPB SCH (21:16)
[2018-12-31] MEDS ORDERED: DEXTROSE 5%-WATER - 50 ML IVPB ONE ×2 (21:20→23:04)
[2018-12-31] MEDS ORDERED: cefTRIAXone SODIUM 1 GM VIAL ONE (21:20)
[2018-12-31 21:53] LABS: BASO % 0.3 % (0-2.0); EOS % 0.4 % (0-4.5); HEMATOCRIT 38.9 % (32.4-45.2); HEMOGLOBIN 12.8 GM/dL (10.7-15.3); LYMPH % 11.9 % (8-40); MCH 29.3 pg (25.7-33.7); MEAN CELL VOLUME 88.8 fl (80-96); MEAN PLT VOLUME 8.4 fl (7.5-11.1); MONO % 7.7 % (3.8-10.2); NEUT % 79.7 % (42.8-82.8); PLATELET COUNT 278 K/MM3 (134-434); RBC 4.38 M/mm3 (3.60-5.2); RDW 14.2 % (11.6-15.6); WHITE BLOOD COUNT 9.6 K/mm3 (4.0-10.0)
--- NOTE | 2018-12-31 22:47 | HOSP ---
Physical Examination Vital Signs: Vital Signs Temperature 99.7 F H 12/31/18 19:45 Pulse Rate 121 H 12/31/18 16:35 Respiratory Rate 20 12/31/18 16:35 Blood Pressure 124/72 12/31/18 16:35 O2 Sat by Pulse Oximetry (%) 99 12/30/18 21:00 Labs: CBC, BMP 12/31/18 21:34 12/31/18 10:53 Hospitalist Encounter Assessment: I evaluated for patient, spiking fevers since this afternoon up to 102F, tachycardic, appears septic. Ordered blood cultures, cbc, cmp, lactate, on dose of pip/tazo. I discussed case with Dr. Kelley and he recommended medical therapy with antibiotics for now.
[2018-12-31] MEDS: SODIUM CHLORIDE 1,000 ML IV SCH (23:00)
[2018-12-31] MEDS ORDERED: PIPERACILLIN/TAZOB 3.375 GM 3.375 GM in DEXTROSE 5%-WATER - 50 ML IVPB ONE (23:00)
[2018-12-31] MEDS ORDERED: PIPERACILLIN/TAZOBACTAM 3.375 GM VIAL IVPB ONE (23:04)
[2018-12-31 23:51] LABS: ALBUMIN 2.3 g/dl (3.4-5.0); BILIRUBIN,TOTAL 0.5 mg/dL (0.2-1); BLOOD UREA NITROGEN 12.2 mg/dL (7-18); CALCIUM 8.2 mg/dL (8.5-10.1); CREATININE 0.5 mg/dL (0.55-1.3); TOT PROT 5.6 g/dl (6.4-8.2)
[2019-01-01] MEDS: MORPHINE SULFATE 2 MG/ML VIAL IVPUSH PRN ×4 (00:48→23:04)
[2019-01-01 05:30] LABS: EPI CELLS 5.3 /HPF (0-5/HPF); HYALINE CASTS 5 /lpf (0-8); URINE APPEARANCE CLEAR; URINE BACTERIA 77.4 /hpf (NEGATIVE); URINE BILIRUBIN NEGATIVE (NEGATIVE); URINE COLOR YELLOW; URINE GLUCOSE (UA) NEGATIVE (NEGATIVE); URINE KETONE 4+ (NEGATIVE); URINE LEUK ESTERASE NEGATIVE (NEGATIVE); URINE NITRITE NEGATIVE (NEGATIVE); URINE PROTEIN 1+ (NEGATIVE); URINE RBC 5 /hpf (0-4); URINE UROBILINOGEN 0.2 mg/dL (0.2-1.0); URINE WBC 4 /hpf (0-5)
[2019-01-01] MEDS: ACETAMINOPHEN 1000 MG/100 ML VIAL (NON FORMULARY) IVPB PRN ×2 (06:06→16:54)
[2019-01-01 07:55] LABS: BASO % 0.1 % (0-2.0); BLOOD UREA NITROGEN 10.9 mg/dL (7-18); CREATININE 0.5 mg/dL (0.55-1.3); HEMOGLOBIN 12.1 GM/dL (10.7-15.3); LYMPH % 8.3 % (8-40); MCH 29.1 pg (25.7-33.7); MCHC 32.6 g/dl (32.0-36.0); MEAN CELL VOLUME 89.3 fl (80-96); MEAN PLT VOLUME 8.8 fl (7.5-11.1); MONO % 7.7 % (3.8-10.2); NEUT % 83.9 % (42.8-82.8); PLATELET COUNT 281 K/MM3 (134-434); POTASSIUM 3.8 mmol/L (3.5-5.1); RBC 4.14 M/mm3 (3.60-5.2); RDW 14.5 % (11.6-15.6); WHITE BLOOD COUNT 10.4 K/mm3 (4.0-10.0)
[2019-01-01] MEDS ORDERED: cefTRIAXone SODIUM 1 GM VIAL ONE (09:09)
[2019-01-01] MEDS ORDERED: DEXTROSE 5%-WATER - 50 ML IVPB ONE (09:09)
[2019-01-01] MEDS: PANTOPRAZOLE SODIUM 40 MG VIAL IVPUSH SCH (09:28)
[2019-01-01] MEDS: ENOXAPARIN NA (PORCINE) 40 MG/0.4 ML DISP.SYRIN SQ SCH (09:28)
[2019-01-01] MEDS: CEFTRIAXONE 1 GM in DEXTROSE 5%-WATER - 50 ML IVPB SCH (09:28)
--- NOTE | 2019-01-01 09:45 | PN ---
Progress Note (short form) - Note Progress Note: s/p surgery POD #2 spiking fever-- cultures drawn pt voided urine NG + Vital Signs - 24 hr Vital Signs - 24 hr 12/31/18 12/31/18 12/31/18 14:46 16:35 18:40 Temperature 100.5 F H 102 F H 100.9 F H Pulse Rate 103 H 121 H Respiratory 18 20 Rate Blood Pressure 117/72 124/72 12/31/18 12/31/18 01/01/19 19:45 22:55 02:00 Temperature 99.7 F H 101.2 F H 99.9 F H Pulse Rate 119 H Respiratory 18 Rate Blood Pressure 119/73 01/01/19 06:00 Temperature 101.2 F H Pulse Rate 80 Respiratory 18 Rate Blood Pressure 103/53 L Current Medications Generic Name Dose Route Start Last Admin Trade Name Freq PRN Reason Stop Dose Admin Acetaminophen 1,000 mg 12/31/18 02:38 01/01/19 06:06 Ofirmev Injection - IVPB 1,000 mg Q6H PRN Administration MODERATE PAIN Benzocaine 1 spray 12/30/18 14:04 Americaine 20% [place] - TP PRN PRN NG tube placement Benzocaine/Menthol 1 each 12/30/18 14:04 Cepacol Lozenge - MM PRN PRN SORE THROAT Enoxaparin Sodium 40 mg 12/31/18 10:00 01/01/19 09:28 Lovenox - SQ 40 mg DAILY [facility] Administration Ceftriaxone Sodium 1 gm/ 50 mls @ 200 mls/hr 12/31/18 21:00 01/01/19 09:28 Dextrose IVPB 200 mls/hr DAILY [facility] Administration Protocol Metronidazole 500 mg in 100 mls @ 100 mls/hr 12/31/18 21:00 01/01/19 09:29 Flagyl 500mg Premixed Ivpb - IVPB 100 mls/hr Q8H-IV [facility] Administration Sodium Chloride 1,000 mls @ 100 mls/hr 12/31/18 22:00 Normal Saline - IV ASDIR [facility] Sodium Chloride 1,000 mls @ 125 mls/hr 12/31/18 22:45 12/31/18 23:00 Normal Saline - IV 125 mls/hr ASDIR [facility] Administration Morphine Sulfate 2 mg 12/30/18 14:04 01/01/19 08:13 Morphine Sulfate IVPUSH 2 mg Q6H PRN Administration PAIN LEVEL 6-10 Ondansetron HCl 4 mg 12/30/18 14:04 Zofran Injection IVPB Q6H PRN NAUSEA Pantoprazole Sodium 40 mg 12/31/18 10:00 01/01/19 09:28 Protonix Iv IVPUSH 40 mg DAILY [facility] Administration Laboratory Results - last 24 hr 12/31/18 12/31/18 12/31/18 10:53 21:34 22:45 WBC 9.6 RBC 4.38 Hgb 12.8 Hct 38.9 MCV 88.8 MCH 29.3 MCHC 33.0 RDW 14.2 Plt Count 278 MPV 8.4 Absolute Neuts (auto) 7.7 Neutrophils % 79.7 Lymphocytes % 11.9 Monocytes % 7.7 Eosinophils % 0.4 D Basophils % 0.3 Nucleated RBC % 0 Sodium 137 134 L Potassium 4.2 4.0 Chloride 104 102 Carbon Dioxide 27 22 Anion Gap 6 L 10 BUN 13.2 12.2 Creatinine 0.6 0.5 L Est GFR (CKD-EPI)AfAm 119.77 127.17 Est GFR (CKD-EPI)NonAf 103.34 109.72 Random Glucose 98 86 Lactic Acid Calcium 8.2 L 8.2 L Magnesium Total Bilirubin 0.5 AST 18 ALT 23 Alkaline Phosphatase 73 Total Protein 5.6 L Albumin 2.3 L Urine Color Urine Appearance Urine pH Ur Specific [place] Urine Protein Urine Glucose (UA) Urine Ketones Urine Blood Urine Nitrite Urine Bilirubin Urine Urobilinogen Ur Leukocyte Esterase Urine WBC (Auto) Urine RBC (Auto) Urine Casts (Auto) U Epithel Cells (Auto) Urine Bacteria (Auto) 12/31/18 01/01/19 01/01/19 22:45 05:00 06:15 WBC RBC Hgb Hct MCV MCH MCHC RDW Plt Count MPV Absolute Neuts (auto) Neutrophils % Lymphocytes % Monocytes % Eosinophils % Basophils % Nucleated RBC % Sodium 135 L Potassium 3.8 Chloride 103 Carbon Dioxide 19 L Anion Gap 12 BUN 10.9 Creatinine 0.5 L Est GFR (CKD-EPI)AfAm 127.17 Est GFR (CKD-EPI)NonAf 109.72 Random Glucose 70 L Lactic Acid 0.9 Calcium 8.0 L Magnesium 2.0 Total Bilirubin AST ALT Alkaline Phosphatase Total Protein Albumin Urine Color Yellow Urine Appearance Clear Urine pH 5.0 D Ur Specific [place] 1.022 Urine Protein 1+ H Urine Glucose (UA) Negative Urine Ketones 4+ H Urine Blood Negative Urine Nitrite Negative Urine Bilirubin Negative Urine Urobilinogen 0.2 Ur Leukocyte Esterase Negative Urine WBC (Auto) 4 Urine RBC (Auto) 5 Urine Casts (Auto) 5 U Epithel Cells (Auto) 5.3 Urine Bacteria (Auto) 77.4 01/01/19 06:15 WBC 10.4 H RBC 4.14 Hgb 12.1 Hct 37.0 MCV 89.3 MCH 29.1 MCHC 32.6 RDW 14.5 Plt Count 281 MPV 8.8 Absolute Neuts (auto) 8.7 H Neutrophils % 83.9 H Lymphocytes % 8.3 D Monocytes % 7.7 Eosinophils % 0.0 D Basophils % 0.1 Nucleated RBC % 0 Sodium Potassium Chloride Carbon Dioxide Anion Gap BUN Creatinine Est GFR (CKD-EPI)AfAm Est GFR (CKD-EPI)NonAf Random Glucose Lactic Acid Calcium Magnesium Total Bilirubin AST ALT Alkaline Phosphatase Total Protein Albumin Urine Color Urine Appearance Urine pH Ur Specific [place] Urine Protein Urine Glucose (UA) Urine Ketones Urine Blood Urine Nitrite Urine Bilirubin Urine Urobilinogen Ur Leukocyte Esterase Urine WBC (Auto) Urine RBC (Auto) Urine Casts (Auto) U Epithel Cells (Auto) Urine Bacteria (Auto) S1 S2 RRR Lungs decreased NG tube Abd- soft, distended, tender+_, no bs no edema PLAN s/p surgery on antibiotics cultures pending pain control iv fluids DVT prophylaxis continue with meds Problem List - Problems (1) Abdominal pain in female patient Code(s): R10.9 - UNSPECIFIED ABDOMINAL PAIN (2) History of abdominal surgery Code(s): Z98.890 - OTHER SPECIFIED POSTPROCEDURAL STATES (3) Small bowel obstruction Code(s): K56.609 - UNSP INTESTNL OBST, UNSP TO PARTIAL VERSUS COMPLETE OBST
--- NOTE | 2019-01-01 11:55 | PN ---
Progress Note (short form) - Note Progress Note: s: no chest pain, palps, dizziness Current Medications Acetaminophen (Ofirmev Injection -) 1,000 mg IVPB Q6H PRN PRN Reason: MODERATE PAIN Last Admin: 01/01/19 06:06 Dose: 1,000 mg Benzocaine (Americaine 20% [place] -) 1 spray TP PRN PRN PRN Reason: NG tube placement Benzocaine/Menthol (Cepacol Lozenge -) 1 each MM PRN PRN PRN Reason: SORE THROAT Enoxaparin Sodium (Lovenox -) 40 mg SQ DAILY [facility] Last Admin: 01/01/19 09:28 Dose: 40 mg Ceftriaxone Sodium 1 gm/ (Dextrose) 50 mls @ 200 mls/hr IVPB DAILY [facility]; Protocol Last Admin: 01/01/19 09:28 Dose: 200 mls/hr Metronidazole (Flagyl 500mg Premixed Ivpb -) 500 mg in 100 mls @ 100 mls/hr IVPB Q8H-IV [facility] Last Admin: 01/01/19 09:29 Dose: 100 mls/hr Sodium Chloride (Normal Saline -) 1,000 mls @ 100 mls/hr IV ASDIR [facility] Sodium Chloride (Normal Saline -) 1,000 mls @ 125 mls/hr IV ASDIR [facility] Last Admin: 12/31/18 23:00 Dose: 125 mls/hr Morphine Sulfate (Morphine Sulfate) 2 mg IVPUSH Q6H PRN PRN Reason: PAIN LEVEL 6-10 Last Admin: 01/01/19 08:13 Dose: 2 mg Ondansetron HCl (Zofran Injection) 4 mg IVPB Q6H PRN PRN Reason: NAUSEA Pantoprazole Sodium (Protonix Iv) 40 mg IVPUSH DAILY [facility] Last Admin: 01/01/19 09:28 Dose: 40 mg Vital Signs Period Temp Pulse Resp BP Sys/Wilks Pulse Ox Last 24 Hr 99 F-102 F 80-121 18-20 103-131/53-80 96 Constitutional: Yes: No Distress Eyes: Yes: Conjunctiva Clear HENT: Yes: Other (+ NGT) Respiratory: Yes: CTA Bilaterally Gastrointestinal: Yes: Other (decreased bowel sounds, mild distension. No rebound or guarding tenderness) Cardiovascular: Yes: Regular Rate and Rhythm JVD: No Carotid Bruit: No Heart Sounds: Yes: S1, S2 (RRR, no M/R/G) Edema: No Peripheral Pulses WNL: Yes Neurological: Yes: Alert, Oriented Imaging - Results Cat Scan: Report Reviewed EKG: Image Reviewed (NSR 86bpm, nonspecific T wave changes in V2, V3 which are similar to prior ECG 10/09/09.) Assessment/Plan IMP: 1. Small bowel obstruction, s/p ex lap, ANDI, SBR 2. Borderline chronic HTN 3. Chronic nonspecific T wave changes on ECG - plans per surgery - fevers post op, manage per primary - BP improved, monitor
--- NOTE | 2019-01-01 12:54 | PN ---
Progress Note (short form) - Note Progress Note: ID CONSULT DICTATED POST OP FEVER S/P EXPLORATORY LAP, ANDI AWAIT C/S REPEAT CXR CONTINUE EMPIRIC CEFTRIAXONE/ FLAGYL
--- NOTE | 2019-01-01 13:49 | CONS ---
INFECTIOUS DISEASE CONSULTATION DATE OF CONSULTATION: DATE OF DICTATION: January 01, 2019 HISTORY OF PRESENT ILLNESS: The patient is a 53-year-old female who was evaluated for postoperative fever. The patient was admitted to the hospital on December 27, 2018, with worsening abdominal pain. She had worsening abdominal pain for 1 week prior to admission associated with constipation for 2-3 days prior to admission. On presentation a CAT scan was performed of the abdomen and pelvis and revealed distal small bowel obstruction. She was taken to the operating room on December 30, 2018, where exploratory laparotomy, lysis of adhesions and small bowel resection were performed. Postoperatively her course was complicated by fever to 102 and tachycardia. Cultures were obtained and she was empirically treated with ceftriaxone and Flagyl. At the present time she is awake and alert. She complains of abdominal discomfort. She denies any shaking chills. No complaints of chest pain. No dyspnea or cough. She denies any dysuria or hematuria. PAST MEDICAL HISTORY: Positive for section and left ovarian cystectomy. ALLERGIES: None known. MEDICATIONS: At the present time include Tylenol, ceftriaxone, Flagyl, morphine, Protonix. SOCIAL HISTORY: She lives at home in the community. Nonsmoker, nondrinker. SYSTEMS REVIEW: Neurologic: No loss of consciousness, seizure activity, focal weakness. Cardiac: Negative chest pain or palpitations. Respiratory: Negative for cough or sputum production. Gastrointestinal: As per HPI. Genitourinary: Negative for urinary tract infection. LABORATORY DATA: White count 10.4, hematocrit 37.0, platelet count 281, creatinine 0.5. Urinalysis with 4 white cells. Chest x-ray negative. PHYSICAL EXAMINATION:General: She is awake and alert. She is supine in bed, NG in place draining bile. HEENT: Sclerae are anicteric. Heart Sounds: S1, S2. Lungs: Clear. Diminished breath sounds at the bases. Abdomen: Soft. There is mild diffuse tenderness to palpation. Midline surgical wound with danna in place, no evidence of infection. Extremities: Negative Homans sign. IMPRESSION: 1. Postoperative fever. 2. Postoperative day number 2 exploratory laparotomy, lysis of adhesions. PLAN: Await culture results. Repeat chest x-ray. Continue empiric antibiotic coverage with ceftriaxone and Flagyl pending substance workup. Will follow. Thank you for the kind referral. GEOVANY ARREGUIN M.D. [id number]
--- NOTE | 2019-01-01 17:49 | PN ---
Progress Note, Physician Chief Complaint: andominal pain History of Present Illness: 53yo female PMH [place], s/p left ovarian cystectomy 1 week of worsening abdominal pain. Denies nausea and vomiting. She has been stable since surgery. - Current Medication List Current Medications: Active Medications Benzocaine (Americaine 20% [place] -) 1 spray TP PRN PRN PRN Reason: NG tube placement Benzocaine/Menthol (Cepacol Lozenge -) 1 each MM PRN PRN PRN Reason: SORE THROAT Enoxaparin Sodium (Lovenox -) 40 mg SQ DAILY [facility] Last Admin: 01/01/19 09:28 Dose: 40 mg Ceftriaxone Sodium 1 gm/ (Dextrose) 50 mls @ 200 mls/hr IVPB DAILY [facility]; Protocol Last Admin: 01/01/19 09:28 Dose: 200 mls/hr Metronidazole (Flagyl 500mg Premixed Ivpb -) 500 mg in 100 mls @ 100 mls/hr IVPB Q8H-IV [facility] Last Admin: 01/01/19 09:29 Dose: 100 mls/hr Sodium Chloride (Normal Saline -) 1,000 mls @ 100 mls/hr IV ASDIR [facility] Sodium Chloride (Normal Saline -) 1,000 mls @ 125 mls/hr IV ASDIR [facility] Last Admin: 12/31/18 23:00 Dose: 125 mls/hr Morphine Sulfate (Morphine Sulfate) 2 mg IVPUSH Q6H PRN PRN Reason: PAIN LEVEL 6-10 Last Admin: 01/01/19 13:53 Dose: 2 mg Ondansetron HCl (Zofran Injection) 4 mg IVPB Q6H PRN PRN Reason: NAUSEA Pantoprazole Sodium (Protonix Iv) 40 mg IVPUSH DAILY [facility] Last Admin: 01/01/19 09:28 Dose: 40 mg - Objective Vital Signs: Vital Signs Temperature 100.2 F H 01/01/19 17:01 Pulse Rate 104 H 01/01/19 17:01 Respiratory Rate 20 01/01/19 17:01 Blood Pressure 136/86 01/01/19 17:01 O2 Sat by Pulse Oximetry (%) 96 01/01/19 09:00 Vital Signs Period Temp Pulse Resp BP Sys/Wilks Pulse Ox Last 24 Hr 99.4 F-100.2 F 100-109 18-20 129-141/85-89 96-96 Intake & Output 01/01/19 01/02/19 01/02/19 23:59 07:59 15:59 Intake Total 500 975 Output Total 150 Balance 500 825 Weight 147 lb Intake: IV 500 875 Normal Saline - 1,000 ml 500 875 @ 125 mls/hr IV ASDIR [facility] Rx#:[id number] IVPB 100 Output: Drainage 150 NG Tube draine 150 Other: Voiding Method Toilet Toilet # Unmeasured Voids Guillory 1 Void 2 Bowel Movement No Height 5 ft 4 in Body Mass Index (BMI) 25.2 Constitutional: Yes: Well Nourished, No Distress, Calm Eyes: Yes: Conjunctiva Clear, EOM Intact HENT: Yes: Atraumatic, Normocephalic Neck: Yes: Supple, Trachea Midline Cardiovascular: Yes: Regular Rate and Rhythm, S1, S2 Respiratory: Yes: Regular, CTA Bilaterally Gastrointestinal: Yes: Soft, Hypoactive Bowel Sounds. No: Distention ...Rectal Exam: Yes: Deferred Genitourinary: No: CVA Tenderness - Left, CVA Tenderness - Right Breast(s): No: Mass, Skin Changes Musculoskeletal: No: Muscle Pain, Muscle Weakness Extremities: No: Cool, Cyanosis Edema: No Peripheral Pulses WNL: Yes Peripheral Pulses: Left Radial: 2+, Right Radial: 2+, Left [place]oralis Pedis: 2+, Right Dorsalis Pedis: 2+, Left Femoral: 2+, Right Femoral: 2+ Wound/Incision: Yes: Clean/Dry, Well Approximated, [place] Intact, Dressing Dry and Intact Neurological: Yes: Alert, Oriented Psychiatric: Yes: Alert, Oriented Labs: CBC, BMP 01/01/19 06:15 01/01/19 06:15 INR, PTT INR 1.09 (0.83-1.09) 12/29/18 13:47 Problem List - Problems (1) Small bowel obstruction Assessment/Plan: 53yo female s/p Multiple abdominal surgeries with SBO with possible closed loop POD#2 s/p Exp Laparotomy and segmental ressection of small bowel for a stangulated closed loop. NPO and IVF hydration NGT to LCWS IV antibiotics adequate analgesia OOB to chair will follow Code(s): K56.609 - UNSP INTESTNL OBST, UNSP TO PARTIAL VERSUS COMPLETE OBST (2) History of abdominal surgery Code(s): Z98.890 - OTHER SPECIFIED POSTPROCEDURAL STATES (3) Abdominal pain in female patient Code(s): R10.9 - UNSPECIFIED ABDOMINAL PAIN
[2019-01-01] MEDS: SODIUM CHLORIDE 1,000 ML IV SCH (23:08)
[2019-01-02] MEDS: SODIUM CHLORIDE 1,000 ML IV SCH ×4 (01:36→22:04)
[2019-01-02 07:18] LABS: ALBUMIN 2.1 g/dl (3.4-5.0); BILIRUBIN,TOTAL 0.3 mg/dL (0.2-1); BLOOD UREA NITROGEN 9.5 mg/dL (7-18); CREATININE 0.4 mg/dL (0.55-1.3); POTASSIUM 3.5 mmol/L (3.5-5.1); TOT PROT 5.2 g/dl (6.4-8.2)
[2019-01-02 07:22] LABS: BASO % 0.1 % (0-2.0); EOS % 0.5 % (0-4.5); HEMATOCRIT 35.9 % (32.4-45.2); HEMOGLOBIN 11.8 GM/dL (10.7-15.3); LYMPH % 7.5 % (8-40); MCH 29.4 pg (25.7-33.7); MEAN CELL VOLUME 89.1 fl (80-96); MEAN PLT VOLUME 8.6 fl (7.5-11.1); MONO % 7.5 % (3.8-10.2); NEUT % 84.4 % (42.8-82.8); PLATELET COUNT 285 K/MM3 (134-434); RBC 4.03 M/mm3 (3.60-5.2); RDW 14.1 % (11.6-15.6); WHITE BLOOD COUNT 9.6 K/mm3 (4.0-10.0)
[2019-01-02] MEDS ORDERED: ACETAMINOPHEN 1000 MG/100 ML VIAL (NON FORMULARY) IVPB ONE (08:30)
[2019-01-02] MEDS ORDERED: cefTRIAXone SODIUM 1 GM VIAL ONE (09:03)
[2019-01-02] MEDS ORDERED: DEXTROSE 5%-WATER - 50 ML IVPB ONE (09:04)
[2019-01-02] MEDS: PANTOPRAZOLE SODIUM 40 MG VIAL IVPUSH SCH (09:15)
[2019-01-02] MEDS: ENOXAPARIN NA (PORCINE) 40 MG/0.4 ML DISP.SYRIN SQ SCH (09:27)
[2019-01-02] MEDS: CEFTRIAXONE 1 GM in DEXTROSE 5%-WATER - 50 ML IVPB SCH (10:29)
[2019-01-02] MEDS: MORPHINE SULFATE 2 MG/ML VIAL IVPUSH PRN ×3 (10:41→22:55)
--- NOTE | 2019-01-02 11:11 | PN ---
Progress Note, Physician Chief Complaint: No CP or SOB - Current Medication List Current Medications: Active Medications Benzocaine (Americaine 20% [place] -) 1 spray TP PRN PRN PRN Reason: NG tube placement Benzocaine/Menthol (Cepacol Lozenge -) 1 each MM PRN PRN PRN Reason: SORE THROAT Last Admin: 01/01/19 23:06 Dose: 1 each Enoxaparin Sodium (Lovenox -) 40 mg SQ DAILY LEVI Last Admin: 01/02/19 09:27 Dose: 40 mg Ceftriaxone Sodium 1 gm/ (Dextrose) 50 mls @ 200 mls/hr IVPB DAILY LEVI; Protocol Last Admin: 01/02/19 10:29 Dose: 200 mls/hr Metronidazole (Flagyl 500mg Premixed Ivpb -) 500 mg in 100 mls @ 100 mls/hr IVPB Q8H-IV LEVI Last Admin: 01/02/19 09:16 Dose: 100 mls/hr Sodium Chloride (Normal Saline -) 1,000 mls @ 100 mls/hr IV ASDIR LEVI Last Admin: 01/02/19 09:16 Dose: 100 mls/hr Sodium Chloride (Normal Saline -) 1,000 mls @ 125 mls/hr IV ASDIR LEVI Last Admin: 01/01/19 23:08 Dose: 125 mls/hr Morphine Sulfate (Morphine Sulfate) 2 mg IVPUSH Q6H PRN PRN Reason: PAIN LEVEL 6-10 Last Admin: 01/02/19 10:41 Dose: 2 mg Ondansetron HCl (Zofran Injection) 4 mg IVPB Q6H PRN PRN Reason: NAUSEA Pantoprazole Sodium (Protonix Iv) 40 mg IVPUSH DAILY LEVI Last Admin: 01/02/19 09:15 Dose: 40 mg - Objective Vital Signs: Vital Signs Temperature 100.1 F H 01/02/19 06:00 Pulse Rate 109 H 01/02/19 06:00 Respiratory Rate 18 01/02/19 06:00 Blood Pressure 129/85 01/02/19 06:00 O2 Sat by Pulse Oximetry (%) 96 01/01/19 21:00 Constitutional: Yes: Calm Cardiovascular: Yes: Regular Rate and Rhythm Respiratory: Yes: CTA Bilaterally Gastrointestinal: Yes: Soft (NT) Edema: No Peripheral Pulses WNL: Yes Neurological: Yes: Alert, Oriented ...Motor Strength: WNL Labs: CBC, BMP 01/02/19 05:33 01/02/19 05:38 INR, PTT INR 1.09 (0.83-1.09) 12/29/18 13:47 Assessment/Plan Assessment/Plan IMP: 1. Small bowel obstruction, s/p ex lap, ANDI, SBR 2. Borderline chronic HTN 3. Chronic nonspecific T wave changes on ECG REC: - plans per surgery - fevers post op, manage per primary - BP improved, monitor -DVT prophylaxis as doing
--- NOTE | 2019-01-02 14:07 | PN ---
Progress Note, Physician History of Present Illness: AWAKE, ALERT IN BED NGT IN PLACE NO C/O ABDOMINAL PAIN NO N/V NO BM LOW GRADE FEVERS - Current Medication List Current Medications: Active Medications Benzocaine (Americaine 20% [place] -) 1 spray TP PRN PRN PRN Reason: NG tube placement Benzocaine/Menthol (Cepacol Lozenge -) 1 each MM PRN PRN PRN Reason: SORE THROAT Last Admin: 01/01/19 23:06 Dose: 1 each Enoxaparin Sodium (Lovenox -) 40 mg SQ DAILY [facility] Last Admin: 01/02/19 09:27 Dose: 40 mg Ceftriaxone Sodium 1 gm/ (Dextrose) 50 mls @ 200 mls/hr IVPB DAILY [facility]; Protocol Last Admin: 01/02/19 10:29 Dose: 200 mls/hr Metronidazole (Flagyl 500mg Premixed Ivpb -) 500 mg in 100 mls @ 100 mls/hr IVPB Q8H-IV LEVI Last Admin: 01/02/19 09:16 Dose: 100 mls/hr Sodium Chloride (Normal Saline -) 1,000 mls @ 100 mls/hr IV ASDIR [facility] Last Admin: 01/02/19 09:16 Dose: 100 mls/hr Sodium Chloride (Normal Saline -) 1,000 mls @ 125 mls/hr IV ASDIR [facility] Last Admin: 01/01/19 23:08 Dose: 125 mls/hr Morphine Sulfate (Morphine Sulfate) 2 mg IVPUSH Q6H PRN PRN Reason: PAIN LEVEL 6-10 Last Admin: 01/02/19 10:41 Dose: 2 mg Ondansetron HCl (Zofran Injection) 4 mg IVPB Q6H PRN PRN Reason: NAUSEA Pantoprazole Sodium (Protonix Iv) 40 mg IVPUSH DAILY [facility]I Last Admin: 01/02/19 09:15 Dose: 40 mg - Objective Vital Signs: Vital Signs Temperature 100.1 F H 01/02/19 06:00 Pulse Rate 109 H 01/02/19 06:00 Respiratory Rate 18 01/02/19 06:00 Blood Pressure 129/85 01/02/19 06:00 O2 Sat by Pulse Oximetry (%) 96 01/02/19 09:00 Constitutional: Yes: No Distress Eyes: Yes: Conjunctiva Clear Cardiovascular: Yes: Regular Rate and Rhythm, S1, S2 Respiratory: Yes: CTA Bilaterally Gastrointestinal: Yes: Normal Bowel Sounds, Soft, Tenderness, Other (MILD TENDERNESS; ABDO SL DISTENDED) Extremities: No: Calf Tenderness Labs: CBC, BMP 01/02/19 05:33 01/02/19 05:38 INR, PTT INR 1.09 (0.83-1.09) 12/29/18 13:47 Assessment/Plan POD #3 LAPAROTOMY, ANDI POST OP FEVER AWAIT C/S CONTINUE CEFTRIAXONE/ FLAGYL
--- NOTE | 2019-01-02 14:21 | PN ---
Progress Note, Physician Chief Complaint: andominal pain History of Present Illness: 53yo female PMH s/[place], s/p left ovarian cystectomy 1 week of worsening abdominal pain. Denies nausea and vomiting. She has been stable since surgery. - Current Medication List Current Medications: Active Medications Benzocaine (Americaine 20% [place] -) 1 spray TP PRN PRN PRN Reason: NG tube placement Benzocaine/Menthol (Cepacol Lozenge -) 1 each MM PRN PRN PRN Reason: SORE THROAT Last Admin: 01/01/19 23:06 Dose: 1 each Enoxaparin Sodium (Lovenox -) 40 mg SQ DAILY L[facility]I Last Admin: 01/02/19 09:27 Dose: 40 mg Ceftriaxone Sodium 1 gm/ (Dextrose) 50 mls @ 200 mls/hr IVPB DAILY [facility]; Protocol Last Admin: 01/02/19 10:29 Dose: 200 mls/hr Metronidazole (Flagyl 500mg Premixed Ivpb -) 500 mg in 100 mls @ 100 mls/hr IVPB Q8H-IV LEVI Last Admin: 01/02/19 09:16 Dose: 100 mls/hr Sodium Chloride (Normal Saline -) 1,000 mls @ 100 mls/hr IV ASDIR [facility]EVI Last Admin: 01/02/19 09:16 Dose: 100 mls/hr Sodium Chloride (Normal Saline -) 1,000 mls @ 125 mls/hr IV ASDIR [facility]I Last Admin: 01/01/19 23:08 Dose: 125 mls/hr Morphine Sulfate (Morphine Sulfate) 2 mg IVPUSH Q6H PRN PRN Reason: PAIN LEVEL 6-10 Last Admin: 01/02/19 10:41 Dose: 2 mg Ondansetron HCl (Zofran Injection) 4 mg IVPB Q6H PRN PRN Reason: NAUSEA Pantoprazole Sodium (Protonix Iv) 40 mg IVPUSH DAILY [facility] Last Admin: 01/02/19 09:15 Dose: 40 mg - Objective Vital Signs: Vital Signs Temperature 100.1 F H 01/02/19 06:00 Pulse Rate 109 H 01/02/19 06:00 Respiratory Rate 18 01/02/19 06:00 Blood Pressure 129/85 01/02/19 06:00 O2 Sat by Pulse Oximetry (%) 96 01/02/19 09:00 Vital Signs Period Temp Pulse Resp BP Sys/Wilks Pulse Ox Last 24 Hr 99.4 F-100.2 F 100-109 18-20 129-141/85-89 96-96 Intake & Output 01/01/19 01/02/19 01/02/19 23:59 07:59 15:59 Intake Total 500 975 Output Total 150 Balance 500 825 Weight 147 lb Intake: IV 500 875 Normal Saline - 1,000 ml 500 875 @ 125 mls/hr IV ASDIR LEVI Rx#:[id number] IVPB 100 Output: Drainage 150 NG Tube draine 150 Other: Voiding Method Toilet Toilet # Unmeasured Voids Guillory 1 Void 2 Bowel Movement No Height 5 ft 4 in Body Mass Index (BMI) 25.2 Constitutional: Yes: Well Nourished, No Distress, Calm Eyes: Yes: Conjunctiva Clear, EOM Intact HENT: Yes: Atraumatic, Normocephalic Neck: Yes: Supple, Trachea Midline Cardiovascular: Yes: Regular Rate and Rhythm, S1, S2 Respiratory: Yes: Regular, CTA Bilaterally Gastrointestinal: Yes: Normal Bowel Sounds, Soft. No: Distention, Melena, Splenomegaly, Vomiting ...Rectal Exam: Yes: Deferred Genitourinary: No: CVA Tenderness - Left, CVA Tenderness - Right Breast(s): No: Mass, Skin Changes Musculoskeletal: No: Muscle Pain, Muscle Weakness Extremities: Yes: Cool, Cyanosis Edema: No Peripheral Pulses WNL: Yes Peripheral Pulses: Left Radial: 2+, Right Radial: 2+, Left Doralis Pedis: 2+, Right Dorsalis Pedis: 2+, Left Femoral: 2+, Right Femoral: 2+ Wound/Incision: Yes: Clean/Dry, Well Approximated, [place] Intact, Open to air Neurological: Yes: Alert, Oriented Psychiatric: Yes: Alert, Oriented Labs: CBC, BMP 01/02/19 05:33 01/02/19 05:38 INR, PTT INR 1.09 (0.83-1.09) 12/29/18 13:47 Problem List - Problems (1) Small bowel obstruction Assessment/Plan: 53yo female s/p Multiple abdominal surgeries with SBO with possible closed loop POD#3 s/p Exp Laparotomy and segmental ressection of small bowel for a stangulated closed loop. Clear diet IVF hydration discontinu NGT IV antibiotics adequate analgesia OOB to chair will follow Code(s): K56.609 - UNSP INTESTNL OBST, UNSP TO PARTIAL VERSUS COMPLETE OBST (2) History of abdominal surgery Code(s): Z98.890 - OTHER SPECIFIED POSTPROCEDURAL STATES (3) Abdominal pain in female patient Code(s): R10.9 - UNSPECIFIED ABDOMINAL PAIN
--- NOTE | 2019-01-02 15:26 | PN ---
Progress Note (short form) - Note Progress Note: pt seen/ examined chart is reviewed all f/u noted and appreciated awake/ comfortable. Pain ok NGT taken out Not passing gas yet Cultures -ve so far. pod # 3 Vital Signs Temp 98.5 F 01/02/19 14:00 Pulse 88 01/02/19 14:00 Resp 18 01/02/19 14:00 BP 140/87 01/02/19 14:00 Pulse Ox 96 01/02/19 09:00 Intake & Output 01/01/19 01/02/19 01/02/19 23:59 11:59 23:59 Intake Total 1450 975 Output Total 150 Balance 1450 825 Weight 147 lb Intake: IV 1300 875 Normal Saline - 1,000 ml 800 @ 100 mls/hr IV ASDIR LEVI Rx#:[id number] Normal Saline - 1,000 ml 500 875 @ 125 mls/hr IV ASDIR LEVI Rx#:[id number] IVPB 150 100 Output: Drainage 150 NG Tube draine 150 Other: Voiding Method Toilet Toilet # Unmeasured Voids Guillory 1 Void 2 2 Bowel Movement No No No Height 5 ft 4 in Body Mass Index (BMI) 25.2 Active Medications Benzocaine (Americaine 20% [place] -) 1 spray TP PRN PRN PRN Reason: NG tube placement Benzocaine/Menthol (Cepacol Lozenge -) 1 each MM PRN PRN PRN Reason: SORE THROAT Last Admin: 01/01/19 23:06 Dose: 1 each Enoxaparin Sodium (Lovenox -) 40 mg SQ DAILY LEVI Last Admin: 01/02/19 09:27 Dose: 40 mg Ceftriaxone Sodium 1 gm/ (Dextrose) 50 mls @ 200 mls/hr IVPB DAILY LEVI; Protocol Last Admin: 01/02/19 10:29 Dose: 200 mls/hr Metronidazole (Flagyl 500mg Premixed Ivpb -) 500 mg in 100 mls @ 100 mls/hr IVPB Q8H-IV LEVI Last Admin: 01/02/19 09:16 Dose: 100 mls/hr Sodium Chloride (Normal Saline -) 1,000 mls @ 100 mls/hr IV ASDIR LEVI Last Admin: 01/02/19 09:16 Dose: 100 mls/hr Sodium Chloride (Normal Saline -) 1,000 mls @ 125 mls/hr IV ASDIR [facility] Last Admin: 01/01/19 23:08 Dose: 125 mls/hr Morphine Sulfate (Morphine Sulfate) 2 mg IVPUSH Q6H PRN PRN Reason: PAIN LEVEL 6-10 Last Admin: 01/02/19 10:41 Dose: 2 mg Ondansetron HCl (Zofran Injection) 4 mg IVPB Q6H PRN PRN Reason: NAUSEA Pantoprazole Sodium (Protonix Iv) 40 mg IVPUSH DAILY [facility] Last Admin: 01/02/19 09:15 Dose: 40 mg CBC, BMP 01/02/19 05:33 01/02/19 05:38 Microbiology 12/31/18 21:34 Blood Culture - Preliminary Blood - Peripheral Venous NO GROWTH OBTAINED AFTER 24 HOURS, INCUBATION TO CONTINUE FOR 4 DAYS. 12/31/18 21:39 Blood Culture - Preliminary Blood - Peripheral Venous NO GROWTH OBTAINED AFTER 24 HOURS, INCUBATION TO CONTINUE FOR 4 DAYS. Physical Exam awake/ comfortable S1 S2 RRR Lungs-- decreased at bases. Abd- Quiet . surgical site clean. no edema PLAN s/p surgery-- pod # 3 post op fever Continue antibiotics cultures -ve so far. pain control iv fluids DVT prophylaxis continue with meds monitor labs will follow Problem List - Problems (1) Abdominal pain in female patient Code(s): R10.9 - UNSPECIFIED ABDOMINAL PAIN (2) History of abdominal surgery Code(s): Z98.890 - OTHER SPECIFIED POSTPROCEDURAL STATES (3) Small bowel obstruction Code(s): K56.609 - UNSP INTESTNL OBST, UNSP TO PARTIAL VERSUS COMPLETE OBST
[2019-01-03] MEDS: MORPHINE SULFATE 2 MG/ML VIAL IVPUSH PRN (06:34)
[2019-01-03 06:38] LABS: BASO % 0.2 % (0-2.0); EOS % 2.4 % (0-4.5); HEMATOCRIT 33.5 % (32.4-45.2); HEMOGLOBIN 11.1 GM/dL (10.7-15.3); MCH 29.1 pg (25.7-33.7); MCHC 33.3 g/dl (32.0-36.0); MEAN CELL VOLUME 87.5 fl (80-96); MONO % 9.4 % (3.8-10.2); PLATELET COUNT 332 K/MM3 (134-434); RBC 3.82 M/mm3 (3.60-5.2); RDW 14.1 % (11.6-15.6); WHITE BLOOD COUNT 8.6 K/mm3 (4.0-10.0)
[2019-01-03 06:57] LABS: BILIRUBIN,TOTAL 0.6 mg/dL (0.2-1); BLOOD UREA NITROGEN 6.2 mg/dL (7-18); CALCIUM 7.6 mg/dL (8.5-10.1); CREATININE 0.4 mg/dL (0.55-1.3); POTASSIUM 3.1 mmol/L (3.5-5.1); TOT PROT 5.1 g/dl (6.4-8.2)
[2019-01-03] MEDS ORDERED: DEXTROSE 5%-WATER - 50 ML IVPB ONE (09:02)
[2019-01-03] MEDS ORDERED: cefTRIAXone SODIUM 1 GM VIAL ONE (09:02)
[2019-01-03] MEDS: PANTOPRAZOLE SODIUM 40 MG VIAL IVPUSH SCH (09:08)
[2019-01-03] MEDS: ENOXAPARIN NA (PORCINE) 40 MG/0.4 ML DISP.SYRIN SQ SCH (09:08)
[2019-01-03] MEDS: SODIUM CHLORIDE 1,000 ML IV SCH ×3 (10:23→23:46)
[2019-01-03] MEDS: CEFTRIAXONE 1 GM in DEXTROSE 5%-WATER - 50 ML IVPB SCH (10:24)
[2019-01-03] MEDS: KCL 10 MEQ IVPB 10 MEQ/100 ML INFUS.BAG IVPB SCH ×2 (11:11→12:55)
--- NOTE | 2019-01-03 11:37 | PN ---
Progress Note (short form) - Note Progress Note: s/p surgery POD #4 no fever negative blood cultures drank clears fine no bm or flatus Vital Signs - 24 hr 01/02/19 01/02/19 01/02/19 14:00 16:30 20:21 Temperature 98.5 F 99.4 F Pulse Rate 88 96 H Respiratory 18 20 Rate Blood Pressure 140/87 142/82 O2 Sat by Pulse 96 Oximetry (%) 01/02/19 01/03/19 01/03/19 22:00 06:39 09:00 Temperature 99.4 F 98.6 F Pulse Rate 96 H 91 H Respiratory 20 18 Rate Blood Pressure 142/82 147/92 O2 Sat by Pulse 96 Oximetry (%) 01/03/19 09:16 Temperature 98.7 F Pulse Rate 90 Respiratory 20 Rate Blood Pressure 128/82 O2 Sat by Pulse Oximetry (%) Current Medications Generic Name Dose Route Start Last Admin Trade Name Freq PRN Reason Stop Dose Admin Benzocaine 1 spray 12/30/18 14:04 Americaine 20% [place] - TP PRN PRN NG tube placement Benzocaine/Menthol 1 each 12/30/18 14:04 01/01/19 23:06 Cepacol Lozenge - MM 1 each PRN PRN Administration SORE THROAT Enoxaparin Sodium 40 mg 12/31/18 10:00 01/03/19 09:08 Lovenox - SQ 40 mg DAILY LEVI Administration Ceftriaxone Sodium 1 gm/ 50 mls @ 200 mls/hr 12/31/18 21:00 01/03/19 10:24 Dextrose IVPB 200 mls/hr DAILY LEVI Administration Protocol Metronidazole 500 mg in 100 mls @ 100 mls/hr 12/31/18 21:00 01/03/19 09:08 Flagyl 500mg Premixed Ivpb - IVPB 100 mls/hr Q8H-IV LEVI Administration Sodium Chloride 1,000 mls @ 100 mls/hr 12/31/18 22:00 01/02/19 22:04 Normal Saline - IV Not Given ASDIR LEVI Sodium Chloride 1,000 mls @ 125 mls/hr 12/31/18 22:45 01/03/19 10:23 Normal Saline - IV 125 mls/hr ASDIR LEVI Administration Potassium Chloride 10 meq in 100 mls @ 100 mls/hr 01/03/19 10:30 01/03/19 11: 11 Potassium Chloride 10 Meq Premix Ivpb - IVPB 01/03/19 12:29 100 mls/hr Q60M LEVI Administration Morphine Sulfate 2 mg 12/30/18 14:04 01/03/19 06:34 Morphine Sulfate IVPUSH 2 mg Q6H PRN Administration PAIN LEVEL 6-10 Ondansetron HCl 4 mg 12/30/18 14:04 Zofran Injection IVPB Q6H PRN NAUSEA Pantoprazole Sodium 40 mg 12/31/18 10:00 01/03/19 09:08 Protonix Iv IVPUSH 40 mg DAILY LEVI Administration Laboratory Results - last 24 hr 01/03/19 01/03/19 05:26 05:26 WBC 8.6 RBC 3.82 Hgb 11.1 Hct 33.5 MCV 87.5 MCH 29.1 MCHC 33.3 RDW 14.1 Plt Count 332 MPV 8.0 Absolute Neuts (auto) 6.5 Neutrophils % 76.0 Lymphocytes % 12.0 D Monocytes % 9.4 Eosinophils % 2.4 D Basophils % 0.2 Nucleated RBC % 0 Sodium 140 Potassium 3.1 L Chloride 107 Carbon Dioxide 25 Anion Gap 8 BUN 6.2 L Creatinine 0.4 L Est GFR (CKD-EPI)AfAm 136.86 Est GFR (CKD-EPI)NonAf 118.08 Random Glucose 117 H Calcium 7.6 L Total Bilirubin 0.6 AST 13 L ALT 18 Alkaline Phosphatase 65 Total Protein 5.1 L Albumin 2.0 L S1 S2 RRR Lungs decreased NG tube Abd- soft, ND, tender+_,bs very little no edema PLAN s/p surgery on antibiotics for post op fever cultures negative replace potassium OOB PT eval pain control iv fluids DVT prophylaxis continue with meds Problem List - Problems (1) Abdominal pain in female patient Code(s): R10.9 - UNSPECIFIED ABDOMINAL PAIN (2) History of abdominal surgery Code(s): Z98.890 - OTHER SPECIFIED POSTPROCEDURAL STATES (3) Small bowel obstruction Code(s): K56.609 - UNSP INTESTNL OBST, UNSP TO PARTIAL VERSUS COMPLETE OBST
--- NOTE | 2019-01-03 12:13 | PN ---
Progress Note (short form) - Note Progress Note: s: no chest pain, palps, dizziness, abd pain improving Current Medications Benzocaine (Americaine 20% [place] -) 1 spray TP PRN PRN PRN Reason: NG tube placement Benzocaine/Menthol (Cepacol Lozenge -) 1 each MM PRN PRN PRN Reason: SORE THROAT Last Admin: 01/01/19 23:06 Dose: 1 each Enoxaparin Sodium (Lovenox -) 40 mg SQ DAILY [facility] Last Admin: 01/03/19 09:08 Dose: 40 mg Ceftriaxone Sodium 1 gm/ (Dextrose) 50 mls @ 200 mls/hr IVPB DAILY [facility]; Protocol Last Admin: 01/03/19 10:24 Dose: 200 mls/hr Metronidazole (Flagyl 500mg Premixed Ivpb -) 500 mg in 100 mls @ 100 mls/hr IVPB Q8H-IV LEVI Last Admin: 01/03/19 09:08 Dose: 100 mls/hr Sodium Chloride (Normal Saline -) 1,000 mls @ 100 mls/hr IV ASDIR [facility] Last Admin: 01/02/19 22:04 Dose: Not Given Sodium Chloride (Normal Saline -) 1,000 mls @ 125 mls/hr IV ASDIR [facility] Last Admin: 01/03/19 10:23 Dose: 125 mls/hr Potassium Chloride (Potassium Chloride 10 Meq Premix Ivpb -) 10 meq in 100 mls @ 100 mls/hr IVPB Q60M [facility] Stop: 01/03/19 12:29 Last Admin: 01/03/19 11:11 Dose: 100 mls/hr Melatonin (Melatonin) 5 mg PO HS PRN PRN Reason: INSOMNIA Morphine Sulfate (Morphine Sulfate) 2 mg IVPUSH Q6H PRN PRN Reason: PAIN LEVEL 6-10 Last Admin: 01/03/19 06:34 Dose: 2 mg Ondansetron HCl (Zofran Injection) 4 mg IVPB Q6H PRN PRN Reason: NAUSEA Oxycodone HCl (Roxicodone -) 5 mg PO Q6H PRN PRN Reason: PAIN LEVEL 6-10 Pantoprazole Sodium (Protonix Iv) 40 mg IVPUSH DAILY [facility] Last Admin: 01/03/19 09:08 Dose: 40 mg Vital Signs Period Temp Pulse Resp BP Sys/Wilks Pulse Ox Last 24 Hr 98.5 F-99.4 F 88-96 18-20 128-147/82-92 96-96 Constitutional: Yes: Calm Cardiovascular: Yes: Regular Rate and Rhythm Respiratory: Yes: CTA Bilaterally Gastrointestinal: Yes: Soft (NT) Edema: No Peripheral Pulses WNL: Yes Neurological: Yes: Alert, Oriented no jaundice, diaphoresis not agitated Assessment/Plan IMP: 1. Small bowel obstruction, s/p ex lap, ANDI, SBR 2. Borderline chronic HTN 3. Chronic nonspecific T wave changes on ECG REC: - plans per surgery - fevers post op, manage per primary, improving - BP improved, monitor - DVT prophylaxis as doing
[2019-01-03] MEDS ORDERED: POTASSIUM CHLORIDE ORAL LIQUID 20 MEQ/15 ML PO ONE (13:45)
[2019-01-03] MEDS: oxyCODONE HCL 5 MG TABLET PO PRN ×2 (14:14→22:05)
--- NOTE | 2019-01-03 16:31 | PATH ---
Surgical Pathology Report Patient Name: RUSTY DENNIS Med. Rec. #: [id number] /Age/Gender: 1965 (Age: 53) / F Account: [id number] Location: [facility] MED/SURG Taken: 12/30/2018 Received: 01/02/2019 Reported: 01/03/2019 Physicians: Benton Melo M.D. Specimen(s) Received A: PORTION OF ILEUM B: OMENTUM Clinical History Small bowel obstruction Final Diagnosis A. PORTION OF ILEUM, RESECTION: SEGMENT OF SMALL INTESTINE SHOWING SCATTERED FOCI OF VARYING DEGREES OF MUCOSAL NECROSIS; VASCULAR CONGESTION; MARKED HEMORRHAGE, FOCALLY TRANSMURAL WITH SEVERE ACUTE INFLAMMATION AND ABSCESS FORMATION. FOCAL ACUTE PERITONITIS. VIABLE MARGINS. Comment: The differential diagnosis includes ischemic and infectious etiology. Clinical correlation is recommended. B. PORTION OF OMENTUM, EXCISION: MATURE ADIPOSE TISSUE, CONSISTENT WITH OMENTUM. Electronically Signed Dutsin Meléndez M.D. Gross Description A. Received in formalin labeled "portion of ileum," is a 33 cm in length portion of small bowel with 2 stapled mucosal margins and moderate attached fat. The serosa is focally brown-purple and dusky at one end with a focal stricture. The mucosa displays an 11 cm in length dusky area with flattened folds leading up to the stricture. The remaining mucosa is olson. No mucosal masses are identified. [employer] sections are submitted in 6 cassettes as follows: [id number] stapled mucosal margins; [id number] submitted market survey representative bowel (area of stricture in cassette 5). B. Received in formalin labeled "omentum portion," is a 7.5 x 6.0 x 1.0 cm portion of yellow, lobulated adipose tissue. Sectioning reveals homogeneous yellow, lobulated adipose tissue. No lesions are identified. [employer] sections are submitted in one cassette. /01/02/201901/02/2019
--- NOTE | 2019-01-03 17:09 | PN ---
Progress Note, Physician Chief Complaint: andominal pain History of Present Illness: 53yo female PMH [place], s/p left ovarian cystectomy 1 week of worsening abdominal pain. Denies nausea and vomiting. She has been stable since surgery. Reports flatus and BM and feeling much better. - Current Medication List Current Medications: Active Medications Benzocaine (Americaine 20% [place] -) 1 spray TP PRN PRN PRN Reason: NG tube placement Benzocaine/Menthol (Cepacol Lozenge -) 1 each MM PRN PRN PRN Reason: SORE THROAT Last Admin: 01/01/19 23:06 Dose: 1 each Enoxaparin Sodium (Lovenox -) 40 mg SQ DAILY [facility] Last Admin: 01/03/19 09:08 Dose: 40 mg Ceftriaxone Sodium 1 gm/ (Dextrose) 50 mls @ 200 mls/hr IVPB DAILY [facility]; Protocol Last Admin: 01/03/19 10:24 Dose: 200 mls/hr Metronidazole (Flagyl 500mg Premixed Ivpb -) 500 mg in 100 mls @ 100 mls/hr IVPB Q8H-IV LEVI Last Admin: 01/03/19 09:08 Dose: 100 mls/hr Sodium Chloride (Normal Saline -) 1,000 mls @ 100 mls/hr IV ASDIR [facility] Last Admin: 01/02/19 22:04 Dose: Not Given Sodium Chloride (Normal Saline -) 1,000 mls @ 125 mls/hr IV ASDIR [facility] Last Admin: 01/03/19 10:23 Dose: 125 mls/hr Melatonin (Melatonin) 5 mg PO HS PRN PRN Reason: INSOMNIA Morphine Sulfate (Morphine Sulfate) 2 mg IVPUSH Q6H PRN PRN Reason: PAIN LEVEL 6-10 Last Admin: 01/03/19 06:34 Dose: 2 mg Ondansetron HCl (Zofran Injection) 4 mg IVPB Q6H PRN PRN Reason: NAUSEA Oxycodone HCl (Roxicodone -) 5 mg PO Q6H PRN PRN Reason: PAIN LEVEL 6-10 Last Admin: 01/03/19 14:14 Dose: 5 mg Pantoprazole Sodium (Protonix Iv) 40 mg IVPUSH DAILY [facility] Last Admin: 01/03/19 09:08 Dose: 40 mg - Objective Vital Signs: Vital Signs Temperature 99.2 F 01/03/19 16:56 Pulse Rate 92 H 01/03/19 16:56 Respiratory Rate 18 01/03/19 16:56 Blood Pressure 129/86 01/03/19 16:56 O2 Sat by Pulse Oximetry (%) 96 01/03/19 09:00 Vital Signs Period Temp Pulse Resp BP Sys/Wilks Pulse Ox Last 24 Hr 98.0 F-99.4 F 90-96 18-20 121-147/76-92 96-96 Intake & Output 01/03/19 01/03/19 01/03/19 07:59 15:59 23:59 Intake Total 1200 Balance 1200 Intake: IV 1100 Normal Saline - 1,000 ml 1100 @ 100 mls/hr IV ASDIR [facility]I Rx#:[id number] IVPB 100 Other: Voiding Method Toilet # Unmeasured Voids Void 1 1 Constitutional: Yes: Well Nourished, No Distress, Calm Eyes: Yes: Conjunctiva Clear, EOM Intact HENT: Yes: Atraumatic, Normocephalic Neck: Yes: Supple, Trachea Midline Cardiovascular: Yes: Regular Rate and Rhythm, S1, S2 Respiratory: Yes: Regular, CTA Bilaterally Gastrointestinal: Yes: Normal Bowel Sounds, Soft, Tenderness (incisional). No: Distention ...Rectal Exam: Yes: Deferred Genitourinary: No: CVA Tenderness - Left, CVA Tenderness - Right Breast(s): No: Mass, Skin Changes Musculoskeletal: No: Muscle Pain, Muscle Weakness Extremities: No: Cool, Cyanosis Edema: No Peripheral Pulses WNL: Yes Peripheral Pulses: Left Radial: 2+, Right Radial: 2+, Left Doralis Pedis: 2+, Right Dorsalis Pedis: 2+, Left Femoral: 2+, Right Femoral: 2+ Wound/Incision: Yes: Clean/Dry, Well Approximated, [place] Intact, Open to air Neurological: Yes: Alert, Oriented Psychiatric: Yes: Alert, Oriented Labs: CBC, BMP 01/03/19 05:26 01/03/19 05:26 INR, PTT INR 1.09 (0.83-1.09) 12/29/18 13:47 Problem List - Problems (1) Small bowel obstruction Assessment/Plan: 53yo female s/p Multiple abdominal surgeries with SBO with possible closed loop POD#4 s/p Exp Laparotomy and segmental ressection of small bowel for a stangulated closed loop. Regular diet antibiotics per ID adequate analgesia OOB to chair Discharge at the discretion of the primary team Code(s): K56.609 - UNSP INTESTNL OBST, UNSP TO PARTIAL VERSUS COMPLETE OBST (2) History of abdominal surgery Code(s): Z98.890 - OTHER SPECIFIED POSTPROCEDURAL STATES (3) Abdominal pain in female patient Code(s): R10.9 - UNSPECIFIED ABDOMINAL PAIN
[2019-01-03] MEDS: MELATONIN 5 MG TABLETS PO PRN (22:10)
[2019-01-04 06:18] LABS: BASO % 0.3 % (0-2.0); EOS % 1.5 % (0-4.5); HEMOGLOBIN 10.8 GM/dL (10.7-15.3); LYMPH % 14.7 % (8-40); MCHC 33.8 g/dl (32.0-36.0); MEAN CELL VOLUME 85.7 fl (80-96); MEAN PLT VOLUME 7.6 fl (7.5-11.1); MONO % 9.9 % (3.8-10.2); NEUT % 73.6 % (42.8-82.8); PLATELET COUNT 343 K/MM3 (134-434); RBC 3.73 M/mm3 (3.60-5.2); RDW 13.9 % (11.6-15.6)
[2019-01-04] MEDS: SODIUM CHLORIDE 1,000 ML IV SCH (06:21)
[2019-01-04 06:45] LABS: BILIRUBIN,TOTAL 0.3 mg/dL (0.2-1); BLOOD UREA NITROGEN 3.1 mg/dL (7-18); CALCIUM 7.5 mg/dL (8.5-10.1); CREATININE 0.3 mg/dL (0.55-1.3); TOT PROT 4.9 g/dl (6.4-8.2)
[2019-01-04] MEDS ORDERED: cefTRIAXone SODIUM 1 GM VIAL ONE (08:47)
[2019-01-04] MEDS ORDERED: DEXTROSE 5%-WATER - 50 ML IVPB ONE (08:47)
[2019-01-04] MEDS: CEFTRIAXONE 1 GM in DEXTROSE 5%-WATER - 50 ML IVPB SCH (09:50)
[2019-01-04] MEDS: PANTOPRAZOLE SODIUM 40 MG VIAL IVPUSH SCH (09:51)
[2019-01-04] MEDS: ENOXAPARIN NA (PORCINE) 40 MG/0.4 ML DISP.SYRIN SQ SCH (09:51)
[2019-01-04] MEDS: oxyCODONE HCL 5 MG TABLET PO PRN ×2 (09:52→16:17)
[2019-01-04] MEDS ORDERED: POTASSIUM CHLORIDE ORAL LIQUID 20 MEQ/15 ML PO ONE (13:49)
--- NOTE | 2019-01-04 14:23 | PN ---
Progress Note, Physician Chief Complaint: andominal pain History of Present Illness: 53yo female PMH [place], s/p left ovarian cystectomy 1 week of worsening abdominal pain. Denies nausea and vomiting. She has been stable since surgery. Reports flatus and BM and feeling much better. redness noted at the midline incision - Current Medication List Current Medications: Active Medications Benzocaine (Americaine 20% [place] -) 1 spray TP PRN PRN PRN Reason: NG tube placement Benzocaine/Menthol (Cepacol Lozenge -) 1 each MM PRN PRN PRN Reason: SORE THROAT Last Admin: 01/01/19 23:06 Dose: 1 each Enoxaparin Sodium (Lovenox -) 40 mg SQ DAILY LEVI Last Admin: 01/04/19 09:51 Dose: 40 mg Ceftriaxone Sodium 1 gm/ (Dextrose) 50 mls @ 200 mls/hr IVPB DAILY LEVI; Protocol Last Admin: 01/04/19 09:50 Dose: 200 mls/hr Metronidazole (Flagyl 500mg Premixed Ivpb -) 500 mg in 100 mls @ 100 mls/hr IVPB Q8H-IV LEVI Last Admin: 01/04/19 09:50 Dose: 100 mls/hr Sodium Chloride (Normal Saline -) 1,000 mls @ 125 mls/hr IV ASDIR LEVI Last Admin: 01/04/19 06:21 Dose: 125 mls/hr Melatonin (Melatonin) 5 mg PO HS PRN PRN Reason: INSOMNIA Last Admin: 01/03/19 22:10 Dose: 5 mg Morphine Sulfate (Morphine Sulfate) 2 mg IVPUSH Q6H PRN PRN Reason: PAIN LEVEL 6-10 Last Admin: 01/03/19 06:34 Dose: 2 mg Ondansetron HCl (Zofran Injection) 4 mg IVPB Q6H PRN PRN Reason: NAUSEA Oxycodone HCl (Roxicodone -) 5 mg PO Q6H PRN PRN Reason: PAIN LEVEL 6-10 Last Admin: 01/04/19 09:52 Dose: 5 mg Pantoprazole Sodium (Protonix Iv) 40 mg IVPUSH DAILY LEVI Last Admin: 01/04/19 09:51 Dose: 40 mg - Objective Vital Signs: Vital Signs Temperature 98.3 F 01/04/19 14:01 Pulse Rate 98 H 01/04/19 14:01 Respiratory Rate 18 01/04/19 06:18 Blood Pressure 109/78 01/04/19 14:01 O2 Sat by Pulse Oximetry (%) 97 01/03/19 20:13 Constitutional: Yes: Well Nourished, No Distress, Calm Eyes: Yes: Conjunctiva Clear, EOM Intact HENT: Yes: Atraumatic, Normocephalic Neck: Yes: Supple, Trachea Midline Cardiovascular: Yes: S1, S2 Respiratory: Yes: Regular, CTA Bilaterally Gastrointestinal: Yes: Normal Bowel Sounds, Soft. No: Tenderness ...Rectal Exam: Yes: Deferred Genitourinary: No: CVA Tenderness - Left, CVA Tenderness - Right Musculoskeletal: No: Muscle Pain, Muscle Weakness Extremities: No: Cool, Cyanosis Edema: No Peripheral Pulses WNL: Yes Peripheral Pulses: Left Radial: 2+, Right Radial: 2+, Left Doralis Pedis: 2+, Right Dorsalis Pedis: 2+, Left Femoral: 2+, Right Femoral: 2+ Integumentary: No: Jaundice, Skin Tear, Tattoos Wound/Incision: Yes: Clean/Dry, Well Approximated, Mclean Intact, Mclean Removed (removed the lower 8 staple as there was a small amount of sanguinopurululent material. Culture was sent.), Reddened Neurological: Yes: Alert, Oriented Psychiatric: Yes: Alert, Oriented Labs: CBC, BMP 01/04/19 05:45 01/04/19 05:45 INR, PTT INR 1.09 (0.83-1.09) 12/29/18 13:47 Problem List - Problems (1) Small bowel obstruction Assessment/Plan: 53yo female s/p Multiple abdominal surgeries with SBO with possible closed loop POD#4 s/p Exp Laparotomy and segmental ressection of small bowel for a stangulated closed loop. Regular diet antibiotics per ID adequate analgesia OOB to chair f/u culture Discharge at the discretion of the primary team Code(s): K56.609 - UNSP INTESTNL OBST, UNSP TO PARTIAL VERSUS COMPLETE OBST (2) History of abdominal surgery Code(s): Z98.890 - OTHER SPECIFIED POSTPROCEDURAL STATES (3) Abdominal pain in female patient Code(s): R10.9 - UNSPECIFIED ABDOMINAL PAIN
--- NOTE | 2019-01-04 14:28 | PN ---
Progress Note (short form) - Note Progress Note: s/p surgery POD #5 no fever negative blood cultures eating without any problem regular diet now had bm today felt dizzy this AM when she tried to walk now feels fine Vital Signs - 24 hr 01/03/19 01/03/19 01/03/19 15:00 16:56 20:11 Temperature 98.0 F 99.2 F 98.9 F Pulse Rate 91 H 92 H 92 H Respiratory 20 18 20 Rate Blood Pressure 121/76 129/86 115/77 O2 Sat by Pulse Oximetry (%) 01/03/19 01/04/19 01/04/19 20:13 06:18 14:01 Temperature 99 F 98.3 F Pulse Rate 89 98 H Respiratory 18 Rate Blood Pressure 126/82 109/78 O2 Sat by Pulse 97 Oximetry (%) Current Medications Generic Name Dose Route Start Last Admin Trade Name Freq PRN Reason Stop Dose Admin Benzocaine 1 spray 12/30/18 14:04 Americaine 20% [place] - TP PRN PRN NG tube placement Benzocaine/Menthol 1 each 12/30/18 14:04 01/01/19 23:06 Cepacol Lozenge - MM 1 each PRN PRN Administration SORE THROAT Enoxaparin Sodium 40 mg 12/31/18 10:00 01/04/19 09:51 Lovenox - SQ 40 mg DAILY LEVI Administration Ceftriaxone Sodium 1 gm/ 50 mls @ 200 mls/hr 12/31/18 21:00 01/04/19 09:50 Dextrose IVPB 200 mls/hr DAILY LEVI Administration Protocol Metronidazole 500 mg in 100 mls @ 100 mls/hr 12/31/18 21:00 01/04/19 09:50 Flagyl 500mg Premixed Ivpb - IVPB 100 mls/hr Q8H-IV LEVI Administration Sodium Chloride 1,000 mls @ 125 mls/hr 12/31/18 22:45 01/04/19 06:21 Normal Saline - IV 125 mls/hr ASDIR LEVI Administration Melatonin 5 mg 01/03/19 11:38 01/03/19 22:10 Melatonin PO 5 mg HS PRN Administration INSOMNIA Morphine Sulfate 2 mg 12/30/18 14:04 01/03/19 06:34 Morphine Sulfate IVPUSH 2 mg Q6H PRN Administration PAIN LEVEL 6-10 Ondansetron HCl 4 mg 07/05/19 14:04 Zofran Injection IVPB Q6H PRN NAUSEA Oxycodone HCl 5 mg 01/03/19 11:38 01/04/19 09:52 Roxicodone - PO 5 mg Q6H PRN Administration PAIN LEVEL 6-10 Pantoprazole Sodium 40 mg 12/31/18 10:00 01/04/19 09:51 Protonix Iv IVPUSH 40 mg DAILY LEVI Administration Laboratory Results - last 24 hr 01/04/19 01/04/19 05:45 05:45 WBC 7.0 RBC 3.73 Hgb 10.8 Hct 32.0 L MCV 85.7 MCH 29.0 MCHC 33.8 RDW 13.9 Plt Count 343 MPV 7.6 Absolute Neuts (auto) 5.1 Neutrophils % 73.6 Lymphocytes % 14.7 D Monocytes % 9.9 Eosinophils % 1.5 Basophils % 0.3 Nucleated RBC % 0 Sodium 141 Potassium 3.0 L Chloride 104 Carbon Dioxide 29 Anion Gap 7 L BUN 3.1 L Creatinine 0.3 L Est GFR (CKD-EPI)AfAm 150.44 Est GFR (CKD-EPI)NonAf 129.80 Random Glucose 110 H Calcium 7.5 L Total Bilirubin 0.3 AST 37 ALT 30 Alkaline Phosphatase 59 Total Protein 4.9 L Albumin 2.0 L S1 S2 RRR Lungs decreased NG tube Abd- soft, ND, tender+bs present danna+, clean wound no edema PLAN s/p surgery on antibiotics for post op fever-- asked ID about duration cultures negative replace potassium OOB PT eval pain control iv fluids-- dc DVT prophylaxis continue with meds dc planning Problem List - Problems (1) Abdominal pain in female patient Code(s): R10.9 - UNSPECIFIED ABDOMINAL PAIN (2) History of abdominal surgery Code(s): Z98.890 - OTHER SPECIFIED POSTPROCEDURAL STATES (3) Small bowel obstruction Code(s): K56.609 - UNSP INTESTNL OBST, UNSP TO PARTIAL VERSUS COMPLETE OBST
--- NOTE | 2019-01-04 15:17 | PN ---
Progress Note (short form) - Note Progress Note: s: no chest pain, palps, dizziness, sob, abd pain improving Current Medications Generic Name Dose Route Start Last Admin Trade Name Freq PRN Reason Stop Dose Admin Benzocaine 1 spray 12/30/18 14:04 Americaine 20% [place] - TP PRN PRN NG tube placement Benzocaine/Menthol 1 each 12/30/18 14:04 01/01/19 23:06 Cepacol Lozenge - MM 1 each PRN PRN Administration SORE THROAT Enoxaparin Sodium 40 mg 12/31/18 10:00 01/04/19 09:51 Lovenox - SQ 40 mg DAILY LEVI Administration Ceftriaxone Sodium 1 gm/ 50 mls @ 200 mls/hr 12/31/18 21:00 01/04/19 09:50 Dextrose IVPB 200 mls/hr DAILY LEVI Administration Protocol Metronidazole 500 mg in 100 mls @ 100 mls/hr 12/31/18 21:00 01/04/19 09:50 Flagyl 500mg Premixed Ivpb - IVPB 100 mls/hr Q8H-IV LEVI Administration Melatonin 5 mg 01/03/19 11:38 01/03/19 22:10 Melatonin PO 5 mg HS PRN Administration INSOMNIA Morphine Sulfate 2 mg 12/30/18 14:04 01/03/19 06:34 Morphine Sulfate IVPUSH 2 mg Q6H PRN Administration PAIN LEVEL 6-10 Ondansetron HCl 4 mg 12/30/18 14:04 Zofran Injection IVPB Q6H PRN NAUSEA Oxycodone HCl 5 mg 01/03/19 11:38 01/04/19 09:52 Roxicodone - PO 5 mg Q6H PRN Administration PAIN LEVEL 6-10 Pantoprazole Sodium 40 mg 12/31/18 10:00 01/04/19 09:51 Protonix Iv IVPUSH 40 mg DAILY LEVI Administration Vital Signs Period Temp Pulse Resp BP Sys/Wilks Pulse Ox Last 24 Hr 98.3 F-99.2 F 89-98 18-20 109-129/77-86 97 Constitutional: Yes: Calm Cardiovascular: Yes: Regular Rate and Rhythm Respiratory: Yes: CTA Bilaterally nl eff Gastrointestinal: Yes: Soft (NT) Edema: No Peripheral Pulses WNL: Yes Neurological: Yes: Alert, Oriented no jaundice, diaphoresis not agitated Assessment/Plan IMP: 1. Small bowel obstruction, s/p ex lap, ANDI, SBR 2. Borderline chronic HTN 3. Chronic nonspecific T wave changes on ECG REC: - plans per surgery - fevers post op, manage per primary, improving - BP improved, monitor - DVT prophylaxis as doing -cardiac fregoso remains stable
--- NOTE | 2019-01-04 16:44 | PN ---
Progress Note (short form) - Note Progress Note: ambulating fevers have resolved minimal appetite no nausea or vomiting Vital Signs Period Temp Pulse Resp BP Sys/Wilks Pulse Ox Last 24 Hr 98.3 F-99.2 F 89-98 18-20 109-129/77-86 97 cor-rrr lungs decreased bs at bases abd soft,nt vertical incision with danna intact- mild erythema lower aspect with some tenderness along the incision ext-no edema CBC, BMP 01/04/19 05:45 01/04/19 05:45 Microbiology 01/02/19 21:30 Urine - Urine Clean Catch Urine Culture - Final NO GROWTH OBTAINED 12/31/18 21:34 Blood - Peripheral Venous Blood Culture - Preliminary NO GROWTH OBTAINED AFTER 72 HOURS, INCUBATION TO CONTINUE FOR 2 DAYS. 12/31/18 21:39 Blood - Peripheral Venous Blood Culture - Preliminary NO GROWTH OBTAINED AFTER 72 HOURS, INCUBATION TO CONTINUE FOR 2 DAYS. 12/28/18 06:13 Urine - Urine Clean Catch Urine Culture - Final NO GROWTH OBTAINED Current Medications Benzocaine (Americaine 20% [place] -) 1 spray TP PRN PRN PRN Reason: NG tube placement Benzocaine/Menthol (Cepacol Lozenge -) 1 each MM PRN PRN PRN Reason: SORE THROAT Last Admin: 01/01/19 23:06 Dose: 1 each Enoxaparin Sodium (Lovenox -) 40 mg SQ DAILY LEVI Last Admin: 01/04/19 09:51 Dose: 40 mg Ceftriaxone Sodium 1 gm/ (Dextrose) 50 mls @ 200 mls/hr IVPB DAILY LEVI; Protocol Last Admin: 01/04/19 09:50 Dose: 200 mls/hr Metronidazole (Flagyl 500mg Premixed Ivpb -) 500 mg in 100 mls @ 100 mls/hr IVPB Q8H-IV LEVI Last Admin: 01/04/19 09:50 Dose: 100 mls/hr Melatonin (Melatonin) 5 mg PO HS PRN PRN Reason: INSOMNIA Last Admin: 01/03/19 22:10 Dose: 5 mg Morphine Sulfate (Morphine Sulfate) 2 mg IVPUSH Q6H PRN PRN Reason: PAIN LEVEL 6-10 Last Admin: 01/03/19 06:34 Dose: 2 mg Ondansetron HCl (Zofran Injection) 4 mg IVPB Q6H PRN PRN Reason: NAUSEA Oxycodone HCl (Roxicodone -) 5 mg PO Q6H PRN PRN Reason: PAIN LEVEL 6-10 Last Admin: 01/04/19 16:17 Dose: 5 mg Pantoprazole Sodium (Protonix Iv) 40 mg IVPUSH DAILY LEVI Last Admin: 01/04/19 09:51 Dose: 40 mg a/p postop fevers resolved-rocephin/flagyl day #5 surgery to f/u regarding incisional pain if incision is okay, can d/c home in am off antibiotics d/w Dr Chance continue rocephin/flagyl until discharge
[2019-01-04] MEDS: MELATONIN 5 MG TABLETS PO PRN (21:48)
[2019-01-05] MEDS ORDERED: DEXTROSE 5%-WATER - 50 ML IVPB ONE (09:06)
[2019-01-05] MEDS ORDERED: cefTRIAXone SODIUM 1 GM VIAL ONE (09:06)
[2019-01-05] MEDS: oxyCODONE HCL 5 MG TABLET PO PRN ×3 (09:09→21:50)
[2019-01-05] MEDS: PANTOPRAZOLE SODIUM 40 MG VIAL IVPUSH SCH (09:22)
[2019-01-05] MEDS: ENOXAPARIN NA (PORCINE) 40 MG/0.4 ML DISP.SYRIN SQ SCH (09:27)
[2019-01-05] MEDS: CEFTRIAXONE 1 GM in DEXTROSE 5%-WATER - 50 ML IVPB SCH (11:48)
--- NOTE | 2019-01-05 13:05 | PN ---
Progress Note (short form) - Note Progress Note: s/p surgery POD #6 no fever negative blood cultures eating without any problem regular diet now had bm today she had wound dehiscence in distal portion-- bleeding- wound packed she had pus yesterday Vital Signs - 24 hr 01/04/19 01/04/19 01/04/19 14:01 16:30 21:00 Temperature 98.3 F 98.7 F Pulse Rate 98 H 97 H Respiratory 20 20 Rate Blood Pressure 109/78 118/77 01/04/19 01/05/19 21:22 06:33 Temperature 99.5 F 98.6 F Pulse Rate 97 H 91 H Respiratory 20 20 Rate Blood Pressure 123/68 131/86 Current Medications Generic Name Dose Route Start Last Admin Trade Name Freq PRN Reason Stop Dose Admin Benzocaine 1 spray 12/30/18 14:04 Americaine 20% [place] - TP PRN PRN NG tube placement Benzocaine/Menthol 1 each 12/30/18 14:04 01/01/19 23:06 Cepacol Lozenge - MM 1 each PRN PRN Administration SORE THROAT Enoxaparin Sodium 40 mg 12/31/18 10:00 01/05/19 09:27 Lovenox - SQ 40 mg DAILY LEVI Administration Ceftriaxone Sodium 1 gm/ 50 mls @ 200 mls/hr 12/31/18 21:00 01/05/19 11:48 Dextrose IVPB 200 mls/hr DAILY LEVI Administration Protocol Metronidazole 500 mg in 100 mls @ 100 mls/hr 12/31/18 21:00 01/05/19 09:12 Flagyl 500mg Premixed Ivpb - IVPB 100 mls/hr Q8H-IV LEVI Administration Melatonin 5 mg 01/03/19 11:38 01/04/19 21:48 Melatonin PO 5 mg HS PRN Administration INSOMNIA Morphine Sulfate 2 mg 12/30/18 14:04 01/03/19 06:34 Morphine Sulfate IVPUSH 2 mg Q6H PRN Administration PAIN LEVEL 6-10 Ondansetron HCl 4 mg 12/30/18 14:04 Zofran Injection IVPB Q6H PRN NAUSEA Oxycodone HCl 5 mg 01/03/19 11:38 01/05/19 09:09 Roxicodone - PO 5 mg Q6H PRN Administration PAIN LEVEL 6-10 Pantoprazole Sodium 40 mg 12/31/18 10:00 01/05/19 09:22 Protonix Iv IVPUSH 40 mg DAILY LEVI Administration S1 S2 RRR Lungs decreased NG tube Abd- soft, ND, tender+bs present danna+, wound is opened-- no pus no edema PLAN s/p surgery wound cultures pending on antibiotics for post op fever- will wait for wound culture results OOB PT eval pain control iv fluids-- dc DVT prophylaxis continue with meds Problem List - Problems (1) Abdominal pain in female patient Code(s): R10.9 - UNSPECIFIED ABDOMINAL PAIN (2) History of abdominal surgery Code(s): Z98.890 - OTHER SPECIFIED POSTPROCEDURAL STATES (3) Small bowel obstruction Code(s): K56.609 - UNSP INTESTNL OBST, UNSP TO PARTIAL VERSUS COMPLETE OBST
--- NOTE | 2019-01-05 15:09 | PN ---
Progress Note (short form) - Note Progress Note: s: no chest pain, palps, dizziness, sob. Current Medications Benzocaine (Americaine 20% [place] -) 1 spray TP PRN PRN PRN Reason: NG tube placement Benzocaine/Menthol (Cepacol Lozenge -) 1 each MM PRN PRN PRN Reason: SORE THROAT Last Admin: 01/01/19 23:06 Dose: 1 each Enoxaparin Sodium (Lovenox -) 40 mg SQ DAILY [facility] Last Admin: 01/05/19 09:27 Dose: 40 mg Ceftriaxone Sodium 1 gm/ (Dextrose) 50 mls @ 200 mls/hr IVPB DAILY [facility]; Protocol Last Admin: 01/05/19 11:48 Dose: 200 mls/hr Metronidazole (Flagyl 500mg Premixed Ivpb -) 500 mg in 100 mls @ 100 mls/hr IVPB Q8H-IV LEVI Last Admin: 01/05/19 09:12 Dose: 100 mls/hr Melatonin (Melatonin) 5 mg PO HS PRN PRN Reason: INSOMNIA Last Admin: 01/04/19 21:48 Dose: 5 mg Morphine Sulfate (Morphine Sulfate) 2 mg IVPUSH Q6H PRN PRN Reason: PAIN LEVEL 6-10 Last Admin: 01/03/19 06:34 Dose: 2 mg Ondansetron HCl (Zofran Injection) 4 mg IVPB Q6H PRN PRN Reason: NAUSEA Oxycodone HCl (Roxicodone -) 5 mg PO Q6H PRN PRN Reason: PAIN LEVEL 6-10 Last Admin: 01/05/19 09:09 Dose: 5 mg Pantoprazole Sodium (Protonix Iv) 40 mg IVPUSH DAILY [facility] Last Admin: 01/05/19 09:22 Dose: 40 mg Vital Signs Period Temp Pulse Resp BP Sys/Wilks Pulse Ox Last 24 Hr 98.6 F-99.5 F 91-97 20-20 111-131/68-86 Constitutional: Yes: Calm Cardiovascular: Yes: Regular Rate and Rhythm Respiratory: Yes: CTA Bilaterally nl eff Gastrointestinal: Yes: Soft (NT) Edema: No Peripheral Pulses WNL: Yes Neurological: Yes: Alert, Oriented no jaundice, diaphoresis not agitated Assessment/Plan IMP: 1. Small bowel obstruction, s/p ex lap, ANDI, SBR 2. Borderline chronic HTN 3. Chronic nonspecific T wave changes on ECG REC: - plans per surgery - fevers post op, manage per primary, improving - BP improved, monitor - DVT prophylaxis as doing -cardiac fregoso remains stable
[2019-01-05] MEDS: MELATONIN 5 MG TABLETS PO PRN (21:49)
[2019-01-06] MEDS ORDERED: cefTRIAXone SODIUM 1 GM VIAL ONE (08:45)
[2019-01-06] MEDS ORDERED: DEXTROSE 5%-WATER - 50 ML IVPB ONE (08:45)
[2019-01-06] MEDS: oxyCODONE HCL 5 MG TABLET PO PRN ×2 (10:49→17:13)
[2019-01-06] MEDS: CEFTRIAXONE 1 GM in DEXTROSE 5%-WATER - 50 ML IVPB SCH (10:51)
[2019-01-06 11:09] LABS: BASO % 0.6 % (0-2.0); EOS % 1.6 % (0-4.5); HEMATOCRIT 34.2 % (32.4-45.2); HEMOGLOBIN 11.9 GM/dL (10.7-15.3); LYMPH % 13.8 % (8-40); MCH 29.9 pg (25.7-33.7); MCHC 34.8 g/dl (32.0-36.0); MEAN PLT VOLUME 7.5 fl (7.5-11.1); MONO % 6.5 % (3.8-10.2); NEUT % 77.5 % (42.8-82.8); PLATELET COUNT 453 K/MM3 (134-434); RBC 3.98 M/mm3 (3.60-5.2); RDW 14.3 % (11.6-15.6); WHITE BLOOD COUNT 9.2 K/mm3 (4.0-10.0)
[2019-01-06 11:16] LABS: ALBUMIN 2.6 g/dl (3.4-5.0); BILIRUBIN,TOTAL 0.2 mg/dL (0.2-1); BLOOD UREA NITROGEN 7.7 mg/dL (7-18); CALCIUM 8.7 mg/dL (8.5-10.1); CREATININE 0.6 mg/dL (0.55-1.3); POTASSIUM 3.4 mmol/L (3.5-5.1); TOT PROT 6.1 g/dl (6.4-8.2)
--- NOTE | 2019-01-06 11:42 | PN ---
Progress Note (short form) - Note Progress Note: pt seen/ examined chart reviewed awake/ comfortable mild discomfort +ve drainage at surgical site Vital Signs Temp 99.2 F 01/06/19 07:22 Pulse 88 01/06/19 07:22 Resp 20 01/06/19 07:22 BP 120/79 01/06/19 07:22 Pulse Ox 97 01/03/19 20:13 Intake & Output 01/05/19 01/05/19 01/06/19 11:59 23:59 11:59 Intake Total 320 220 220 Output Total 50 50 50 Balance 270 170 170 Intake: IV 100 Normal Saline - 1,000 ml 100 @ 125 mls/hr IV ASDIR LEVI Rx#:[id number] IVPB 100 100 100 Oral 120 120 120 Output: Gastric Drainage 50 50 50 Other: Voiding Method Toilet Toilet # Unmeasured Voids Void 5 5 5 Bowel Movement No No No Body Mass Index (BMI) 25.2 Active Medications Benzocaine (Americaine 20% [place] -) 1 spray TP PRN PRN PRN Reason: NG tube placement Benzocaine/Menthol (Cepacol Lozenge -) 1 each MM PRN PRN PRN Reason: SORE THROAT Last Admin: 01/01/19 23:06 Dose: 1 each Enoxaparin Sodium (Lovenox -) 40 mg SQ DAILY LEVI Last Admin: 01/05/19 09:27 Dose: 40 mg Ceftriaxone Sodium 1 gm/ (Dextrose) 50 mls @ 200 mls/hr IVPB DAILY LEVI; Protocol Last Admin: 01/06/19 10:51 Dose: 200 mls/hr Metronidazole (Flagyl 500mg Premixed Ivpb -) 500 mg in 100 mls @ 100 mls/hr IVPB Q8H-IV LEVI Last Admin: 01/06/19 02:02 Dose: 100 mls/hr Melatonin (Melatonin) 5 mg PO HS PRN PRN Reason: INSOMNIA Last Admin: 01/05/19 21:49 Dose: 5 mg Morphine Sulfate (Morphine Sulfate) 2 mg IVPUSH Q6H PRN PRN Reason: PAIN LEVEL 6-10 Last Admin: 01/03/19 06:34 Dose: 2 mg Ondansetron HCl (Zofran Injection) 4 mg IVPB Q6H PRN PRN Reason: NAUSEA Oxycodone HCl (Roxicodone -) 5 mg PO Q6H PRN PRN Reason: PAIN LEVEL 6-10 Last Admin: 01/06/19 10:49 Dose: 5 mg Pantoprazole Sodium (Protonix -) 40 mg PO DAILY LEVI CBC, BMP 01/06/19 09:40 01/06/19 09:40 CBC, BMP 01/06/19 09:40 01/06/19 09:40 Microbiology 01/04/19 18:15 Gram Stain - Final Abdomen Wound Culture - Preliminary Lactose Fermenting Neg Bacilli Group D Strep Or Entero Coccus 12/31/18 21:34 Blood Culture - Final Blood - Peripheral Venous NO GROWTH AFTER 5 DAYS INCUBATION 12/31/18 21:39 Blood Culture - Final Blood - Peripheral Venous NO GROWTH AFTER 5 DAYS INCUBATION Physical Exam S1 S2 RRR Lungs decreased NG tube Abd- soft, ND, tender+bs present danna+, wound is opened-- drainage + no edema PLAN s/p surgery wound cultures pending on antibiotics for post op fever- will wait for wound culture results Continue abx today f/u labs local care will not d/c today will follow
[2019-01-06] MEDS: PANTOPRAZOLE SODIUM 40 MG VIAL IVPUSH SCH (12:39)
[2019-01-06] MEDS: ENOXAPARIN NA (PORCINE) 40 MG/0.4 ML DISP.SYRIN SQ SCH (12:41)
--- NOTE | 2019-01-06 12:54 | PN ---
Progress Note, Physician Chief Complaint: sitting in chair No cp or sob Denies palps - Current Medication List Current Medications: Active Medications Benzocaine (Americaine 20% [place] -) 1 spray TP PRN PRN PRN Reason: NG tube placement Benzocaine/Menthol (Cepacol Lozenge -) 1 each MM PRN PRN PRN Reason: SORE THROAT Last Admin: 01/01/19 23:06 Dose: 1 each Enoxaparin Sodium (Lovenox -) 40 mg SQ DAILY LEVI Last Admin: 01/06/19 12:41 Dose: 40 mg Ceftriaxone Sodium 1 gm/ (Dextrose) 50 mls @ 200 mls/hr IVPB DAILY LEVI; Protocol Last Admin: 01/06/19 10:51 Dose: 200 mls/hr Metronidazole (Flagyl 500mg Premixed Ivpb -) 500 mg in 100 mls @ 100 mls/hr IVPB Q8H-IV LEVI Last Admin: 01/06/19 12:40 Dose: 100 mls/hr Melatonin (Melatonin) 5 mg PO HS PRN PRN Reason: INSOMNIA Last Admin: 01/05/19 21:49 Dose: 5 mg Morphine Sulfate (Morphine Sulfate) 2 mg IVPUSH Q6H PRN PRN Reason: PAIN LEVEL 6-10 Last Admin: 01/03/19 06:34 Dose: 2 mg Ondansetron HCl (Zofran Injection) 4 mg IVPB Q6H PRN PRN Reason: NAUSEA Oxycodone HCl (Roxicodone -) 5 mg PO Q6H PRN PRN Reason: PAIN LEVEL 6-10 Last Admin: 01/06/19 10:49 Dose: 5 mg Pantoprazole Sodium (Protonix -) 40 mg PO DAILY [facility] - Objective Vital Signs: Vital Signs Temperature 99.2 F 01/06/19 07:22 Pulse Rate 88 01/06/19 07:22 Respiratory Rate 20 01/06/19 07:22 Blood Pressure 120/79 01/06/19 07:22 O2 Sat by Pulse Oximetry (%) 97 01/03/19 20:13 Constitutional: Yes: Calm Cardiovascular: Yes: Regular Rate and Rhythm Respiratory: Yes: CTA Bilaterally Gastrointestinal: Yes: Soft (NT) Edema: No Neurological: Yes: Alert, Oriented Labs: CBC, BMP 01/06/19 09:40 01/06/19 09:40 INR, PTT INR 1.09 (0.83-1.09) 12/29/18 13:47 Laboratory Tests 12/29/18 12/30/18 01/06/19 13:47 06:06 09:40 WBC 9.0 9.2 Hgb 11.9 Hct 41.2 Plt Count 307 453 H D Sodium 138 Potassium 4.2 BUN 20.0 H Creatinine 0.6 Calcium 8.8 Total Bilirubin 0.5 AST 23 ALT 33 Alkaline Phosphatase 83 Total Protein 6.7 Albumin 3.2 L 01/06/19 09:40 WBC Hgb Hct Plt Count Sodium 139 Potassium 3.4 L BUN Creatinine 0.6 Calcium Total Bilirubin AST 82 H ALT 90 H Alkaline Phosphatase Total Protein Albumin Assessment/Plan IMP: 1. Small bowel obstruction, s/p ex lap, ANDI, SBR 2. Borderline chronic HTN 3. Chronic nonspecific T wave changes on ECG 4. Transaminitis REC: - plans per surgery - fevers post op, manage per primary, improving - BP improved, monitor - DVT prophylaxis as doing -cardiac fregoso remains stable -Follow LFTs, as per PMD
[2019-01-06] MEDS: MELATONIN 5 MG TABLETS PO PRN (21:53)
[2019-01-07] MEDS: oxyCODONE HCL 5 MG TABLET PO PRN ×3 (01:22→15:46)
[2019-01-07 07:51] LABS: BLOOD UREA NITROGEN 9.9 mg/dL (7-18); CALCIUM 8.3 mg/dL (8.5-10.1); CREATININE 0.5 mg/dL (0.55-1.3); POTASSIUM 3.6 mmol/L (3.5-5.1)
[2019-01-07 07:55] LABS: BASO % 0.5 % (0-2.0); EOS % 2.2 % (0-4.5); HEMATOCRIT 30.8 % (32.4-45.2); HEMOGLOBIN 10.6 GM/dL (10.7-15.3); LYMPH % 18.9 % (8-40); MCH 29.4 pg (25.7-33.7); MCHC 34.3 g/dl (32.0-36.0); MEAN CELL VOLUME 85.6 fl (80-96); MONO % 7.9 % (3.8-10.2); NEUT % 70.5 % (42.8-82.8); RDW 14.3 % (11.6-15.6); WHITE BLOOD COUNT 7.4 K/mm3 (4.0-10.0)
[2019-01-07 08:35] LABS: PLATELET COUNT 388 K/MM3 (134-434)
[2019-01-07] MEDS ORDERED: DEXTROSE 5%-WATER - 50 ML IVPB ONE (09:10)
[2019-01-07] MEDS ORDERED: cefTRIAXone SODIUM 1 GM VIAL ONE (09:10)
[2019-01-07] MEDS: ENOXAPARIN NA (PORCINE) 40 MG/0.4 ML DISP.SYRIN SQ SCH (09:17)
[2019-01-07] MEDS: PANTOPRAZOLE 40 MG TABLET (FP) PO SCH (09:17)
[2019-01-07] MEDS: CEFTRIAXONE 1 GM in DEXTROSE 5%-WATER - 50 ML IVPB SCH (09:17)
--- NOTE | 2019-01-07 10:30 | PN ---
Progress Note (short form) - Note Progress Note: ambulating no abdominal pain bottom of incision was opened and drained by surgeon Vital Signs Period Temp Pulse Resp BP Sys/Wilks Pulse Ox Last 24 Hr 97.8 F-98.8 F 64-96 18-20 113-188/65-82 96 cor-rrr lungs clear abd soft,nt lower incision open, no purulence, no erythema, +serous drainage ext no edema CBC, BMP 01/07/19 06:30 01/07/19 06:30 Microbiology 01/04/19 18:15 Abdomen Gram Stain - Final 01/04/19 18:15 Abdomen Wound Culture - Preliminary Enterobacter Cloacae Group D Strep Or Entero Coccus 12/31/18 21:34 Blood - Peripheral Venous Blood Culture - Final NO GROWTH AFTER 5 DAYS INCUBATION 12/31/18 21:39 Blood - Peripheral Venous Blood Culture - Final NO GROWTH AFTER 5 DAYS INCUBATION 01/02/19 21:30 Urine - Urine Clean Catch Urine Culture - Final NO GROWTH OBTAINED 12/28/18 06:13 Urine - Urine Clean Catch Urine Culture - Final NO GROWTH OBTAINED a/p postop fevers resolved-rocephin/flagyl day #8 surgery to f/u regarding wound management-d/w dr staley does she need VNS? d/c flagyl/d/c rocephin switch to po levaquin/amox for 5 days given continued drainage would f/u abnormal LFTS as wwll please call back if needed
--- NOTE | 2019-01-07 12:48 | PN ---
Progress Note (short form) - Note Progress Note: s: no chest pain, palps, dizziness, sob, abd pain improving Current Medications Generic Name Dose Route Start Last Admin Trade Name Joshuaq PRN Reason Stop Dose Admin Amoxicillin 500 mg 01/07/19 14:00 Amoxicillin - PO TID LEVI Benzocaine 1 spray 12/30/18 14:04 [place] 20% [place] - TP PRN PRN NG tube placement Benzocaine/Menthol 1 each 12/30/18 14:04 01/01/19 23:06 Cepacol Lozenge - MM 1 each PRN PRN Administration SORE THROAT Enoxaparin Sodium 40 mg 12/31/18 10:00 01/07/19 09:17 Lovenox - SQ 40 mg DAILY LEVI Administration Levofloxacin 500 mg 01/08/19 06:00 Levaquin - PO DAILY@0600 LEVI Melatonin 5 mg 01/03/19 11:38 01/06/19 21:53 Melatonin PO 5 mg HS PRN Administration INSOMNIA Morphine Sulfate 2 mg 12/30/18 14:04 01/03/19 06:34 Morphine Sulfate IVPUSH 2 mg Q6H PRN Administration PAIN LEVEL 6-10 Oxycodone HCl 5 mg 01/03/19 11:38 01/07/19 09:24 Roxicodone - PO 5 mg Q6H PRN Administration PAIN LEVEL 6-10 Pantoprazole Sodium 40 mg 01/07/19 10:00 01/07/19 09:17 Protonix - PO 40 mg DAILY LEVI Administration Vital Signs Period Temp Pulse Resp BP Sys/Wilks Pulse Ox Last 24 Hr 97.8 F-98.8 F 64-96 18-20 105-188/65-82 96 Constitutional: Yes: Calm Cardiovascular: Yes: Regular Rate and Rhythm Respiratory: Yes: CTA Bilaterally nl eff Gastrointestinal: Yes: Soft (NT) Edema: No Peripheral Pulses WNL: Yes Neurological: Yes: Alert, Oriented no jaundice, diaphoresis not agitated CBC, BMP 01/07/19 06:30 01/07/19 06:30 Assessment/Plan IMP: 1. Small bowel obstruction, s/p ex lap, ANDI, SBR 2. Borderline chronic HTN 3. Chronic nonspecific T wave changes on ECG REC: - plans per surgery - fevers post op, manage per primary/ID, improving - BP improved - DVT prophylaxis as doing -cardiac fregoso remains stable
--- NOTE | 2019-01-07 13:09 | PN ---
Progress Note (short form) - Note Progress Note: s/p surgery POD #8 negative blood cultures eating without any problem regular diet now still has drainage from wound-- purulent discharge Vital Signs - 24 hr 01/06/19 01/06/19 01/07/19 21:00 22:00 06:00 Temperature 98.0 F 98.8 F Pulse Rate 67 88 Respiratory 20 20 Rate Blood Pressure 121/73 120/74 O2 Sat by Pulse 96 Oximetry (%) 01/07/19 01/07/19 01/07/19 09:00 10:00 14:00 Temperature 98.6 F 98.2 F Pulse Rate 93 H 86 Respiratory 20 20 20 Rate Blood Pressure 105/69 105/68 O2 Sat by Pulse 99 Oximetry (%) 01/07/19 16:30 Temperature 98.5 F Pulse Rate 87 Respiratory 20 Rate Blood Pressure 101/67 O2 Sat by Pulse Oximetry (%) Current Medications Generic Name Dose Route Start Last Admin Trade Name Freq PRN Reason Stop Dose Admin Amoxicillin 500 mg 01/07/19 14:00 01/07/19 13:51 Amoxicillin - PO 500 mg TID LEVI Administration Benzocaine 1 spray 12/30/18 14:04 Americaine 20% [place] - TP PRN PRN NG tube placement Benzocaine/Menthol 1 each 12/30/18 14:04 01/01/19 23:06 Cepacol Lozenge - MM 1 each PRN PRN Administration SORE THROAT Enoxaparin Sodium 40 mg 12/31/18 10:00 01/07/19 09:17 Lovenox - SQ 40 mg DAILY LEVI Administration Levofloxacin 500 mg 01/08/19 06:00 Levaquin - PO DAILY@0600 LEVI Melatonin 5 mg 01/03/19 11:38 01/06/19 21:53 Melatonin PO 5 mg HS PRN Administration INSOMNIA Morphine Sulfate 2 mg 12/30/18 14:04 01/03/19 06:34 Morphine Sulfate IVPUSH 2 mg Q6H PRN Administration PAIN LEVEL 6-10 Oxycodone HCl 5 mg 01/03/19 11:38 01/07/19 15:46 Roxicodone - PO 5 mg Q6H PRN Administration PAIN LEVEL 6-10 Pantoprazole Sodium 40 mg 01/07/19 10:00 01/07/19 09:17 Protonix - PO 40 mg DAILY LEVI Administration Laboratory Results - last 24 hr 01/07/19 01/07/19 06:30 06:30 WBC 7.4 RBC 3.60 Hgb 10.6 L Hct 30.8 L MCV 85.6 MCH 29.4 MCHC 34.3 RDW 14.3 Plt Count 388 MPV 3.0 L Absolute Neuts (auto) 5.2 Neutrophils % 70.5 Lymphocytes % 18.9 D Monocytes % 7.9 Eosinophils % 2.2 Basophils % 0.5 Nucleated RBC % 0 Sodium 142 Potassium 3.6 Chloride 103 Carbon Dioxide 31 Anion Gap 8 BUN 9.9 Creatinine 0.5 L Est GFR (CKD-EPI)AfAm 127.17 Est GFR (CKD-EPI)NonAf 109.72 Random Glucose 100 Calcium 8.3 L S1 S2 RRR Lungs decreased NG tube Abd- soft, ND, tender+bs present danna+, wound is opened distal end, tender+-- purulent discharge + no edema PLAN s/p surgery wound cultures noted on antibiotics OOB PT eval spoke with ID and surgery-- surgeon will come to check the wound-- may need wound vac Problem List - Problems (1) Abdominal pain in female patient Code(s): R10.9 - UNSPECIFIED ABDOMINAL PAIN (2) History of abdominal surgery Code(s): Z98.890 - OTHER SPECIFIED POSTPROCEDURAL STATES (3) Small bowel obstruction Code(s): K56.609 - UNSP INTESTNL OBST, UNSP TO PARTIAL VERSUS COMPLETE OBST
[2019-01-07] MEDS: AMOXICILLIN 500 MG CAPSULE (FP) PO SCH ×2 (13:51→21:37)
[2019-01-07] MEDS ORDERED: PT OWN MED DRAWER 7, Y5N ONE (21:20)
[2019-01-07] MEDS: MELATONIN 5 MG TABLETS PO PRN (21:36)
[2019-01-08] MEDS: oxyCODONE HCL 5 MG TABLET PO PRN ×3 (01:36→22:22)
[2019-01-08] MEDS ORDERED: PT OWN MED DRAWER 7, Y5N ONE ×3 (06:03→20:59)
[2019-01-08] MEDS: AMOXICILLIN 500 MG CAPSULE (FP) PO SCH ×3 (06:26→22:21)
[2019-01-08 08:23] LABS: BASO % 0.4 % (0-2.0); EOS % 1.7 % (0-4.5); HEMATOCRIT 31.3 % (32.4-45.2); HEMOGLOBIN 10.7 GM/dL (10.7-15.3); LYMPH % 20.3 % (8-40); MCH 29.3 pg (25.7-33.7); MCHC 34.1 g/dl (32.0-36.0); MEAN CELL VOLUME 85.9 fl (80-96); MEAN PLT VOLUME 7.3 fl (7.5-11.1); MONO % 7.7 % (3.8-10.2); NEUT % 69.9 % (42.8-82.8); RBC 3.64 M/mm3 (3.60-5.2)
[2019-01-08 08:44] LABS: PLATELET COUNT 434 K/MM3 (134-434)
[2019-01-08 08:48] LABS: ALBUMIN 2.3 g/dl (3.4-5.0); BILIRUBIN,TOTAL 0.2 mg/dL (0.2-1); BLOOD UREA NITROGEN 8.2 mg/dL (7-18); CALCIUM 8.5 mg/dL (8.5-10.1); CREATININE 0.5 mg/dL (0.55-1.3); POTASSIUM 3.7 mmol/L (3.5-5.1); TOT PROT 5.6 g/dl (6.4-8.2)
--- NOTE | 2019-01-08 09:56 | PN ---
Progress Note (short form) - Note Progress Note: ambulating no abdominal pain bottom of incision was opened and drained by surgeon several days ago Vital Signs Period Temp Pulse Resp BP Sys/Wilks Pulse Ox Last 24 Hr 98.2 F-99.6 F 86-93 20-20 101-121/67-79 98 cor-rrr lungs decreased bs at bases abd soft,nt open area at bottom incision no erythema, no purulence, still some serosanguinous drainage ext no edema CBC, BMP 01/08/19 07:24 01/08/19 07:24 Microbiology 01/04/19 18:15 Abdomen Gram Stain - Final 01/04/19 18:15 Abdomen Wound Culture - Final Enterobacter [place]ae Enterococcus Faecalis 12/31/18 21:34 Blood - Peripheral Venous Blood Culture - Final NO GROWTH AFTER 5 DAYS INCUBATION 12/31/18 21:39 Blood - Peripheral Venous Blood Culture - Final NO GROWTH AFTER 5 DAYS INCUBATION 01/02/19 21:30 Urine - Urine Clean Catch Urine Culture - Final NO GROWTH OBTAINED 12/28/18 06:13 Urine - Urine Clean Catch Urine Culture - Final NO GROWTH OBTAINED a/p postop fevers resolved- surgery to f/u regarding wound management-awaiting surgery f/u on levaquin/amox for 7 days abnl lfts have resolved d/w dr krause please call back if needed
--- NOTE | 2019-01-08 09:57 | PN ---
Progress Note (short form) - Note Progress Note: s/p surgery POD #9 negative blood cultures eating without any problem regular diet now still has drainage from wound--serous discharge Vital Signs - 24 hr 01/07/19 01/07/19 01/07/19 16:30 22:00 22:51 Temperature 98.5 F 99.6 F Pulse Rate 87 92 H Respiratory 20 20 Rate Blood Pressure 101/67 121/79 O2 Sat by Pulse 98 Oximetry (%) 01/08/19 10:00 Temperature 98.4 F Pulse Rate 82 Respiratory 18 Rate Blood Pressure 112/67 O2 Sat by Pulse Oximetry (%) Current Medications Generic Name Dose Route Start Last Admin Trade Name Freq PRN Reason Stop Dose Admin Amoxicillin 500 mg 01/07/19 14:00 01/08/19 14:13 Amoxicillin - PO 500 mg TID LEVI Administration Benzocaine 1 spray 12/30/18 14:04 Americaine 20% [place] - TP PRN PRN NG tube placement Benzocaine/Menthol 1 each 12/30/18 14:04 01/01/19 23:06 Cepacol Lozenge - MM 1 each PRN PRN Administration SORE THROAT Enoxaparin Sodium 40 mg 12/31/18 10:00 01/08/19 11:18 Lovenox - SQ 40 mg DAILY LVEI Administration Levofloxacin 500 mg 01/08/19 06:00 01/08/19 06:26 Levaquin - PO 500 mg DAILY@0600 LEVI Administration Melatonin 5 mg 01/03/19 11:38 01/07/19 21:36 Melatonin PO 5 mg HS PRN Administration INSOMNIA Morphine Sulfate 2 mg 12/30/18 14:04 01/03/19 06:34 Morphine Sulfate IVPUSH 2 mg Q6H PRN Administration PAIN LEVEL 6-10 Oxycodone HCl 5 mg 01/03/19 11:38 01/08/19 11:18 Roxicodone - PO 5 mg Q6H PRN Administration PAIN LEVEL 6-10 Pantoprazole Sodium 40 mg 01/07/19 10:00 01/08/19 11:18 Protonix - PO 40 mg DAILY LEVI Administration Laboratory Results - last 24 hr 01/08/19 01/08/19 01/08/19 07:24 07:24 07:24 WBC 7.0 RBC 3.64 Hgb 10.7 Hct 31.3 L MCV 85.9 MCH 29.3 MCHC 34.1 RDW 14.0 Plt Count 434 MPV 7.3 L D Absolute Neuts (auto) 4.9 Neutrophils % 69.9 Lymphocytes % 20.3 Monocytes % 7.7 Eosinophils % 1.7 Basophils % 0.4 Nucleated RBC % 0 Sodium 139 Potassium 3.7 Chloride 104 Carbon Dioxide 30 Anion Gap 5 L BUN 8.2 Creatinine 0.5 L Est GFR (CKD-EPI)AfAm 127.17 Est GFR (CKD-EPI)NonAf 109.72 Random Glucose 94 Hemoglobin A1c % 5.3 Calcium 8.5 Total Bilirubin 0.2 AST 31 ALT 59 Alkaline Phosphatase 72 Total Protein 5.6 L Albumin 2.3 L S1 S2 RRR Lungs decreased NG tube Abd- soft, ND, tender+bs present danna+, wound is opened distal end, tender decreased -- serous discharge + no edema PLAN s/p surgery wound cultures noted on antibiotics examined pt with ID surgical follow up OOB PT eval Problem List - Problems (1) Abdominal pain in female patient Code(s): R10.9 - UNSPECIFIED ABDOMINAL PAIN (2) History of abdominal surgery Code(s): Z98.890 - OTHER SPECIFIED POSTPROCEDURAL STATES (3) Small bowel obstruction Code(s): K56.609 - UNSP INTESTNL OBST, UNSP TO PARTIAL VERSUS COMPLETE OBST
[2019-01-08] MEDS: ENOXAPARIN NA (PORCINE) 40 MG/0.4 ML DISP.SYRIN SQ SCH (11:18)
[2019-01-08] MEDS: PANTOPRAZOLE 40 MG TABLET (FP) PO SCH (11:18)
--- NOTE | 2019-01-08 13:01 | PN ---
Progress Note (short form) - Note Progress Note: s: no chest pain, palps, dizziness, sob, abd pain improving Current Medications Generic Name Dose Route Start Last Admin Trade Name Joshuaq PRN Reason Stop Dose Admin Amoxicillin 500 mg 01/07/19 14:00 01/08/19 06:26 Amoxicillin - PO 500 mg TID LEVI Administration Benzocaine 1 spray 12/30/18 14:04 Americaine 20% [place] - TP PRN PRN NG tube placement Benzocaine/Menthol 1 each 12/30/18 14:04 01/01/19 23:06 Cepacol Lozenge - MM 1 each PRN PRN Administration SORE THROAT Enoxaparin Sodium 40 mg 12/31/18 10:00 01/08/19 11:18 Lovenox - SQ 40 mg DAILY LEVI Administration Levofloxacin 500 mg 01/08/19 06:00 01/08/19 06:26 Levaquin - PO 500 mg DAILY@0600 LEVI Administration Melatonin 5 mg 01/03/19 11:38 01/07/19 21:36 Melatonin PO 5 mg HS PRN Administration INSOMNIA Morphine Sulfate 2 mg 12/30/18 14:04 01/03/19 06:34 Morphine Sulfate IVPUSH 2 mg Q6H PRN Administration PAIN LEVEL 6-10 Oxycodone HCl 5 mg 01/03/19 11:38 01/08/19 11:18 Roxicodone - PO 5 mg Q6H PRN Administration PAIN LEVEL 6-10 Pantoprazole Sodium 40 mg 01/07/19 10:00 01/08/19 11:18 Protonix - PO 40 mg DAILY LEVI Administration Vital Signs Period Temp Pulse Resp BP Sys/Wilks Pulse Ox Last 24 Hr 98.2 F-99.6 F 86-92 20-20 101-121/67-79 98 Constitutional: Yes: Calm Cardiovascular: Yes: Regular Rate and Rhythm Respiratory: Yes: CTA Bilaterally nl eff Gastrointestinal: Yes: Soft (NT) Edema: No Peripheral Pulses WNL: Yes Neurological: Yes: Alert, Oriented no jaundice, diaphoresis not agitated CBC, BMP 01/08/19 07:24 01/08/19 07:24 Assessment/Plan IMP: 1. Small bowel obstruction, s/p ex lap, ANDI, SBR 2. Borderline chronic HTN 3. Chronic nonspecific T wave changes on ECG REC: - plans per surgery, may need wound vac - fevers post op, manage per primary/ID, improving - BP improved - DVT prophylaxis as doing -cardiac fregoso remains stable
[2019-01-08] MEDS: MELATONIN 5 MG TABLETS PO PRN (22:22)
[2019-01-09] MEDS ORDERED: PT OWN MED DRAWER 7, Y5N ONE ×4 (05:47→21:35)
[2019-01-09] MEDS: AMOXICILLIN 500 MG CAPSULE (FP) PO SCH ×3 (06:15→23:11)
[2019-01-09] MEDS: ENOXAPARIN NA (PORCINE) 40 MG/0.4 ML DISP.SYRIN SQ SCH (10:26)
[2019-01-09] MEDS: PANTOPRAZOLE 40 MG TABLET (FP) PO SCH (10:29)
--- NOTE | 2019-01-09 12:03 | PN ---
Progress Note (short form) - Note Progress Note: pt seen/ examined chart reviewed comfortable Vital Signs Temp 98.8 F 01/09/19 06:45 Pulse 82 01/09/19 06:45 Resp 18 01/09/19 06:45 BP 112/65 01/09/19 06:45 Pulse Ox 95 01/08/19 21:00 Intake & Output 01/08/19 01/09/19 01/09/19 23:59 11:59 23:59 Intake Total 0 Balance 0 Intake: IV 0 Saline lock 0 Other: Voiding Method Toilet Bowel Movement No No # Bowel Movements 1 Active Medications Amoxicillin (Amoxicillin -) 500 mg PO TID [facility] Last Admin: 01/09/19 06:15 Dose: 500 mg Benzocaine (Americaine 20% [place] -) 1 spray TP PRN PRN PRN Reason: NG tube placement Benzocaine/Menthol (Cepacol Lozenge -) 1 each MM PRN PRN PRN Reason: SORE THROAT Last Admin: 01/01/19 23:06 Dose: 1 each Enoxaparin Sodium (Lovenox -) 40 mg SQ DAILY [facility] Last Admin: 01/09/19 10:26 Dose: 40 mg Levofloxacin (Levaquin -) 500 mg PO DAILY@0600 [facility] Last Admin: 01/09/19 06:14 Dose: 500 mg Melatonin (Melatonin) 5 mg PO HS PRN PRN Reason: INSOMNIA Last Admin: 01/08/19 22:22 Dose: 5 mg Morphine Sulfate (Morphine Sulfate) 2 mg IVPUSH Q6H PRN PRN Reason: PAIN LEVEL 6-10 Last Admin: 01/03/19 06:34 Dose: 2 mg Oxycodone HCl (Roxicodone -) 5 mg PO Q6H PRN PRN Reason: PAIN LEVEL 6-10 Last Admin: 01/08/19 22:22 Dose: 5 mg Pantoprazole Sodium (Protonix -) 40 mg PO DAILY [facility] Last Admin: 01/09/19 10:29 Dose: 40 mg CBC, BMP 01/08/19 07:24 01/08/19 07:24 Physical S1 S2 RRR Lungs decreased NG tube Abd- soft, ND, tender+bs present danna+, wound is opened distal end, serous discharge + no edema PLAN s/p surgery wound cultures noted on antibiotics examined pt with ID surgical follow up -- pending -- OOB PT eval Problem List - Problems (1) Abdominal pain in female patient Code(s): R10.9 - UNSPECIFIED ABDOMINAL PAIN (2) History of abdominal surgery Code(s): Z98.890 - OTHER SPECIFIED POSTPROCEDURAL STATES (3) Small bowel obstruction Code(s): K56.609 - UNSP INTESTNL OBST, UNSP TO PARTIAL VERSUS COMPLETE OBST
[2019-01-09] MEDS: oxyCODONE HCL 5 MG TABLET PO PRN (12:08)
[2019-01-09] MEDS ORDERED: ACETAMINOPHEN 325 MG TABLET (FP) PO PRN (14:31)
[2019-01-09] MEDS ORDERED: oxyCODONE HCL 5 MG TABLET PO PRN (14:32)
--- NOTE | 2019-01-09 15:57 | PN ---
Progress Note (short form) - Note Progress Note: s: no chest pain, palps, dizziness, sob Current Medications Acetaminophen (Tylenol -) 650 mg PO Q6H PRN PRN Reason: Pain Level 4 - 10 Amoxicillin (Amoxicillin -) 500 mg PO TID [facility] Last Admin: 01/09/19 15:16 Dose: 500 mg Benzocaine (Americaine 20% [place] -) 1 spray TP PRN PRN PRN Reason: NG tube placement Enoxaparin Sodium (Lovenox -) 40 mg SQ DAILY [facility] Last Admin: 01/09/19 10:26 Dose: 40 mg Levofloxacin (Levaquin -) 500 mg PO DAILY@0600 [facility] Last Admin: 01/09/19 06:14 Dose: 500 mg Melatonin (Melatonin) 5 mg PO HS PRN PRN Reason: INSOMNIA Last Admin: 01/08/19 22:22 Dose: 5 mg Oxycodone HCl (Roxicodone -) 5 mg PO Q6H PRN PRN Reason: Pain Level 8-10 BREAKTHROUGH Pantoprazole Sodium (Protonix -) 40 mg PO DAILY [facility] Last Admin: 01/09/19 10:29 Dose: 40 mg Vital Signs Period Temp Pulse Resp BP Sys/Wilks Pulse Ox Last 24 Hr 98.5 F-98.8 F 82-88 18-18 92-112/59-65 95 Constitutional: Yes: Calm Cardiovascular: Yes: Regular Rate and Rhythm Respiratory: Yes: CTA Bilaterally nl eff Gastrointestinal: Yes: Soft (NT) Edema: No Peripheral Pulses WNL: Yes Neurological: Yes: Alert, Oriented no jaundice, diaphoresis not agitated Assessment/Plan IMP: 1. Small bowel obstruction, s/p ex lap, ANDI, SBR 2. Borderline chronic HTN 3. Chronic nonspecific T wave changes on ECG REC: - plans per surgery, may need wound vac - fevers post op, manage per primary/ID, improving - BP stable - DVT prophylaxis as doing -cardiac fregoso remains stable
[2019-01-09] MEDS: MELATONIN 5 MG TABLETS PO PRN (21:40)
[2019-01-10] MEDS ORDERED: PT OWN MED DRAWER 7, Y5N ONE (06:07)
[2019-01-10] MEDS: AMOXICILLIN 500 MG CAPSULE (FP) PO SCH ×2 (06:23→14:30)
--- NOTE | 2019-01-10 09:29 | PN ---
Progress Note, Physician Chief Complaint: andominal pain History of Present Illness: 53yo female PMH [place], s/p left ovarian cystectomy 1 week of worsening abdominal pain. Denies nausea and vomiting. She has been stable since surgery. Reports flatus and BM and feeling much better. redness noted at the midline incision - Current Medication List Current Medications: Active Medications Acetaminophen (Tylenol -) 650 mg PO Q6H PRN PRN Reason: Pain Level 4 - 10 Amoxicillin (Amoxicillin -) 500 mg PO TID [facility] Last Admin: 01/10/19 06:23 Dose: 500 mg Benzocaine (Americaine 20% [place] -) 1 spray TP PRN PRN PRN Reason: NG tube placement Enoxaparin Sodium (Lovenox -) 40 mg SQ DAILY [facility] Last Admin: 01/09/19 10:26 Dose: 40 mg Levofloxacin (Levaquin -) 500 mg PO DAILY@0600 [facility] Last Admin: 01/10/19 06:23 Dose: 500 mg Melatonin (Melatonin) 5 mg PO HS PRN PRN Reason: INSOMNIA Last Admin: 01/09/19 21:40 Dose: 5 mg Oxycodone HCl (Roxicodone -) 5 mg PO Q6H PRN PRN Reason: Pain Level 8-10 BREAKTHROUGH Last Admin: 01/09/19 21:40 Dose: 5 mg Pantoprazole Sodium (Protonix -) 40 mg PO DAILY [facility] Last Admin: 01/09/19 10:29 Dose: 40 mg - Objective Vital Signs: Vital Signs Temperature 99 F 01/10/19 06:00 Pulse Rate 82 01/10/19 06:00 Respiratory Rate 20 01/10/19 06:00 Blood Pressure 109/68 01/10/19 06:00 O2 Sat by Pulse Oximetry (%) 97 01/09/19 21:00 Vital Signs Period Temp Pulse Resp BP Sys/Wilks Pulse Ox Last 24 Hr 97.4 F-99 F 79-82 20-20 96-116/60-72 97 Intake & Output 01/09/19 01/10/19 01/10/19 23:59 07:59 15:59 Intake Total 300 Balance 300 Intake: IV 0 Saline lock 0 Oral 300 Other: Voiding Method Toilet # Unmeasured Voids Void 2 Bowel Movement No Constitutional: Yes: Well Nourished, No Distress, Calm Eyes: Yes: Conjunctiva Clear, EOM Intact HENT: Yes: Atraumatic, Normocephalic Neck: Yes: Supple, Trachea Midline, Lymphadenopathy Cardiovascular: Yes: S1, S2 Respiratory: Yes: Regular, CTA Bilaterally Gastrointestinal: Yes: Normal Bowel Sounds, Soft, Other (mildine wound). No: Tenderness Genitourinary: No: CVA Tenderness - Left, CVA Tenderness - Right Breast(s): No: Mass, Skin Changes Musculoskeletal: No: Muscle Pain, Muscle Weakness Extremities: No: Cool, Cyanosis Edema: No Peripheral Pulses WNL: Yes Peripheral Pulses: Left Radial: 2+, Right Radial: 2+, Left Doralis Pedis: 2+, Right Dorsalis Pedis: 2+, Left Femoral: 2+, Right Femoral: 2+ Wound/Incision: Yes: Clean/Dry, Well Approximated, Open to air, Dressing Removed (No need for VAC, woud has minial serous drainage), Danna Removed. No : Draining Neurological: Yes: Alert, Oriented Psychiatric: Yes: Alert, Oriented Labs: CBC, BMP 01/08/19 07:24 01/08/19 07:24 INR, PTT INR 1.09 (0.83-1.09) 12/29/18 13:47 Problem List - Problems (1) Small bowel obstruction Assessment/Plan: 53yo female s/p Multiple abdominal surgeries with SBO with possible closed loop POD#11 s/p Exp Laparotomy and segmental ressection of small bowel for a stangulated closed loop. No VAC needed Regular diet no more antibiotics adequate analgesia OOB to chair f/u culture danna removed Discharge at the discretion of the primary team Code(s): K56.609 - UNSP INTESTNL OBST, UNSP TO PARTIAL VERSUS COMPLETE OBST (2) History of abdominal surgery Code(s): Z98.890 - OTHER SPECIFIED POSTPROCEDURAL STATES (3) Abdominal pain in female patient Code(s): R10.9 - UNSPECIFIED ABDOMINAL PAIN
[2019-01-10 10:39] VITALS: BP 108/64; PULSE 96
[2019-01-10] MEDS: PANTOPRAZOLE 40 MG TABLET (FP) PO SCH (10:54)
[2019-01-10] MEDS: ENOXAPARIN NA (PORCINE) 40 MG/0.4 ML DISP.SYRIN SQ SCH (10:58)
--- NOTE | 2019-01-10 11:54 | DS ---
Physical Examination Vital Signs: Vital Signs Temperature 99 F 01/10/19 06:00 Pulse Rate 96 H 01/10/19 10:39 Respiratory Rate 18 01/10/19 10:39 Blood Pressure 108/64 01/10/19 10:39 O2 Sat by Pulse Oximetry (%) 97 01/09/19 21:00 Constitutional: Yes: No Distress, Calm Cardiovascular: Yes: Regular Rate and Rhythm Respiratory: Yes: CTA Bilaterally Gastrointestinal: Yes: Normal Bowel Sounds, Soft, Other (surgical wound noted-- distal part wound dehiscence-- no purulent discharge, danna removed by surgeon ). No: Distention Labs: CBC, BMP 01/08/19 07:24 01/08/19 07:24 Discharge Summary Reason For Visit: SMALL BOWEL OBSTRUCTION Current Active Problems Abdominal pain in female patient (Acute) History of abdominal surgery (Acute) Small bowel obstruction (Acute) Hospital Course: Admitted for SBO Initially managed conservatively with NG tube suction and iv fluids pt was evaluated by Surgeon She underwent 12/30/18-- Operation: exploratory laparotomy, lysis of adhesion, sgemental ressection of small intestines and omentum Findings: closed loop mid ileum, compromised small intestines ressected and primary stapled anastomisis was created Developed postoperative fever-- blood cultures negative Surgical wound at distal portion was tender, danna at distal portion removed and purulent discharge drained out wound cultures came back as Enterococcus Evaluated by ID-- was on antibiotics She is currently afebrile Today danna removed by Surgeon No further purulent drainage pt better no elevated WBC pt is stable to dc home and follow up with surgeon and PMD Microbiology 01/04/19 18:15 Abdomen Gram Stain - Final 01/04/19 18:15 Abdomen Wound Culture - Final Enterobacter Cloacae Enterococcus Faecalis 12/31/18 21:34 Blood - Peripheral Venous Blood Culture - Final NO GROWTH AFTER 5 DAYS INCUBATION 12/31/18 21:39 Blood - Peripheral Venous Blood Culture - Final NO GROWTH AFTER 5 DAYS INCUBATION 01/02/19 21:30 Urine - Urine Clean Catch Urine Culture - Final NO GROWTH OBTAINED 12/28/18 06:13 Urine - Urine Clean Catch Urine Culture - Final NO GROWTH OBTAINED Condition: Improved - Instructions Diet, Activity, Other Instructions: Postoperative instructions: You had a Exploratory Laparotomy with segmental small bowel resection on 12/30/[address] John Kelley of [facility]. Wound dressing: Location - Lower midline incision Size - 3 cm, full thickness abdominal wall to the fascia Instruction - pack the wound with the corner of a 4X4 gauze sponge, 4X4 gauze cover and tape; every day Activity: Resume your usual activities gradually, but no heavy exertion or lifting more than 10-15 pounds for 4-6 weeks. You can shower with the dressing OUT/OFF, but do not put anything but soap and water on the wound unless instructed. No bath or swimming until skin incisions have healed. Eat lightly at first, but advance to your usual diet as tolerated. Pain: For pain, you may use and alternate Tylenol (acetaminophen) 1-2 pills and/ or ibuprofen 200 mg (1-3 pills) every 6 hours each as needed; this means that you can take one OR the other at 3-hour intervals. Do not take more than 4000 mg of acetaminophen in a day. Take medications as prescribed or indicated on the labeling. Follow-up: Call Dr. Kelley' office at [phone] to make your postop appointment (Wednesday in approximately 2 weeks after surgery as advised). Clinic is held in the [facility] on the first floor of [facility]. Call the office if you have: * increasing pain not responsive to pain medication * fever of 101F or higher * vomiting * unusual or increasing bleeding or drainage from wounds * increasing redness or swelling at wound sites Also, see your primary medical doctor within 1-2 weeks. Referrals: John Kelley MD [Staff Physician] - Kevan Nava MD [Primary Care Provider] - 2 Weeks Disposition: HOME - Home Medications Comprehensive Discharge Medication List: Ambulatory Orders Naproxen [Naprosyn -] 500 PO PRN 12/27/18
--- NOTE | 2019-01-10 15:22 | PN ---
Progress Note, Physician Chief Complaint: no CP, SOB, wants to go home - Current Medication List Current Medications: Active Medications Acetaminophen (Tylenol -) 650 mg PO Q6H PRN PRN Reason: Pain Level 4 - 10 Last Admin: 01/10/19 11:01 Dose: 650 mg Amoxicillin (Amoxicillin -) 500 mg PO TID [facility] Last Admin: 01/10/19 14:30 Dose: 500 mg Benzocaine (Americaine 20% [place] -) 1 spray TP PRN PRN PRN Reason: NG tube placement Enoxaparin Sodium (Lovenox -) 40 mg SQ DAILY [facility] Last Admin: 01/10/19 10:58 Dose: 40 mg Levofloxacin (Levaquin -) 500 mg PO DAILY@0600 [facility] Last Admin: 01/10/19 06:23 Dose: 500 mg Melatonin (Melatonin) 5 mg PO HS PRN PRN Reason: INSOMNIA Last Admin: 01/09/19 21:40 Dose: 5 mg Oxycodone HCl (Roxicodone -) 5 mg PO Q6H PRN PRN Reason: Pain Level 8-10 BREAKTHROUGH Last Admin: 01/09/19 21:40 Dose: 5 mg Pantoprazole Sodium (Protonix -) 40 mg PO DAILY [facility] Last Admin: 01/10/19 10:54 Dose: 40 mg - Objective Vital Signs: Vital Signs Temperature 99 F 01/10/19 06:00 Pulse Rate 96 H 01/10/19 10:39 Respiratory Rate 18 01/10/19 10:39 Blood Pressure 108/64 01/10/19 10:39 O2 Sat by Pulse Oximetry (%) 97 01/09/19 21:00 Constitutional: Yes: Calm Cardiovascular: Yes: Regular Rate and Rhythm Respiratory: Yes: CTA Bilaterally Gastrointestinal: Yes: Soft Edema: No Neurological: Yes: Alert, Oriented Labs: CBC, BMP 01/08/19 07:24 01/08/19 07:24 INR, PTT INR 1.09 (0.83-1.09) 12/29/18 13:47 - ....Imaging EKG: Image Reviewed Assessment/Plan IMP: 1. Small bowel obstruction, s/p ex lap, ANDI, SBR 2. Borderline chronic HTN 3. Chronic nonspecific T wave changes on ECG REC: - plans per surgery, may need wound vac - fevers post op, manage per primary/ID, improving - BP stable - DVT prophylaxis as doing -cardiac fregoso remains stable
[2019-01-10 15:32] VITALS: TEMP 97.6
--- NOTE | 2019-01-16 22:35 | OP ---
DATE OF OPERATION: DATE OF DICTATION: 01/16/2019 PREOPERATIVE DIAGNOSIS: Small-bowel obstruction, closed loop. POSTOPERATIVE DIAGNOSIS: Small-bowel obstruction, closed loop. PROCEDURE: Exploratory laparotomy, lysis of adhesions, segmental resection of small intestines and omentum. ATTENDING SURGEON: John Kelley MD PREPRESS MANAGER: Lit Schulz MD ANESTHESIOLOGIST: SAM Da Silva ANESTHESIA TYPE: General with endotracheal intubation. SPECIMEN REMOVED: A portion of the ileum and a portion of the omentum. ESTIMATED BLOOD LOSS: 100 mL. INTRAVENOUS FLUID ADMINISTERED: Crystalloid 1700 mL. DRAINS: NG tube and Guillory at the end of the case. The Guillory output during the case was 150 mL of urine. The drainage also 800 mL of gastroenteric contents was decompressed. BRIEF FINDINGS: Patient had a closed loop of mid ileum, compromised small intestines resected. It was due to an adhesive process in the left lower quadrant. We resected the portion of the small intestines approximately 10 cm, and a stapled anastomosis was created. INDICATION: Patient is a 53-year-old female, history of bowel obstruction. Previous surgery included a left ovarian cyst adenectomy and hysterectomy. She was counseled regarding risks, benefits, and alternatives to surgical exploration; signed informed consent; was taken for the procedure. DESCRIPTION OF PROCEDURE: Patient was brought to the operating room, placed in supine position on the operating table. Lower extremities had SCDs placed to compression. She was already receiving intravenous antibiotics prior to the start of surgery and had received within 1 hour of incision. She was induced with general anesthesia, endotracheal intubated without incident by Anesthesia and was stable. A formal timeout was completed, identifying the operative site and procedure, and with all parties in agreement, began first with sterile prep and drape. An anterior midline approach to the abdomen was incised with a 10-blade scalpel, deepened and widened through the subcutaneous tissue, cauterizing through the layers to the anterior fascia of the rectus. Once identified, they were entered, and then, a blunt entry was made into the abdomen, protecting the intraabdominal viscera with a finger. The remainder of the incision was opened. Once open, the patient was eviscerated, and the small intestines were run from proximal to distal until we came to a point in the left lower quadrant where there appeared to be an adhesive process. These adhesions were lysed carefully, exposing the adhesive bands and releasing a loop of what appeared to be a mid portion of the ileum. It appeared compromised, ischemic, and bruised. Once released, we ran the small intestines again, and there appeared to be no additional obstructive areas. With this done, decision was made to take this segment of small intestines, approximately 10 cm. A hole was made in the mesentery with a clamp and guided an Endo SHARON size 60 mm with a blue load through and through to transect proximally and then, in a similar fashion, distally. The mesentery of the small intestines was taken with a LigaSure device. Upon completion, the opposed, transected loops of bowel were tacked to each other with a 3-0 silk stitch to allow for a stapled-fashion anastomosis. We proceeded then with creating enterotomies and introducing a 60-mm staple and creating a common channel with the SHARON stapler. We then closed the remaining enterotomy with TA size 60 mm blue load. Once the stapled anastomosis was complete in standard fashion, we then closed the rent in the mesentery with 2-0 Vicryl stitch from the base to the bowel anastomosis. We then returned the small intestine to the abdomen and irrigated with approximately 2 L of sterile irrigation fluid. When clear and surgical hemostasis obtained, we began with closure of the abdomen. A segment of omentum which was adherent to the left lower quadrant was also sent along with the specimen, as to not allow for an area of future adhesion. Once complete, the abdomen was closed with the midline fascia using number 1 loop PDS from the superior and inferior poles and tied in the center just above the umbilicus. Aaron were placed in the skin. Skin was cleaned. Sterile dressings were placed. Instrument counts were correct before the start of the closure. The patient was awoken from general anesthesia, having tolerated the procedure well. She returned to recovery in stable condition. MD DIAMOND [id number]/[id number]
== END 2019-01-10 14:00 | disposition home or self-care (01) | DRG 330 ==
LOC: JER 09:34 → JERBED 15:04 → J5S 17:01 → J8W 12-30 17:04
PROVIDERS: ADMIT Internal Medicine; ATTEND Internal Medicine
PROC: 0DN80ZZ Release Small Intestine, Open Approach (ICD-10-PCS; 2018-12-30)
PROC: 0DBB0ZZ Excision of Ileum, Open Approach (ICD-10-PCS; principal; 2018-12-30 11:30)
PROC: 0DBU0ZZ Excision of Omentum, Open Approach (ICD-10-PCS; 2018-12-30 11:30)
PROC: 0WJP0ZZ Inspection of Gastrointestinal Tract, Open Approach (ICD-10-PCS; 2018-12-30 11:30)
DX: K56.609 Unspecified intestinal obstruction, unspecified as to partial versus complete obstruction (principal); T81.31XA Disruption of external operation (surgical) wound, not elsewhere classified, initial encounter; K56.2 Volvulus; K66.0 Peritoneal adhesions (postprocedural) (postinfection); Z98.890 Other specified postprocedural states; R03.0 Elevated blood-pressure reading, without diagnosis of hypertension; R50.82 Postprocedural fever; Y83.8 Other surgical procedures as the cause of abnormal reaction of the patient, or of later complication, without mention of misadventure at the time of the procedure; Y92.230 Patient room in hospital as the place of occurrence of the external cause
CPT/HCPCS: 36415; 71045-TC-FY; 74019-TC-FY; 74177-TC; 80048; 80053; 81003; 83036; 83605; 83690; 83735; 84703; 85025; 85027; 85610; 85730; 86850; 86900; 86901; 87040; 87070; 87086; 87186; 87205; 88305-TC; 88307-TC; 93005; 93010; 94010; 94760; 97116-GP; 97162-GP; 99283-25; J0131; J7030